=== PATIENT | female | born 1935 | race Caucasian/White ===

== ENCOUNTER 2018-07-07 09:38 | Emergency (ER) | payer OTHER ==
--- NOTE | 2018-07-07 10:57 | RAD REPORT ---
EXAM DESCRIPTION: RAD - Knee Right 3 View - 07/07/2018 10:25 am CLINICAL HISTORY: Right knee pain following slip and fall, history of right knee prosthesis COMPARISON: None. FINDINGS: No comparison imaging available. The gap between the anterior margin distal femur and the anterior aspect of the femoral component can be seen normally. No radiographic evidence for loosening of the femoral component. No gross fracture deformity seen. Faint lucent lines in the distal femur o n the lateral view are not seen on frontal and oblique projections.No joint effusion seen. Bone resor ption changes are present underneath the medial margin of the tibial component. A gross fracture defo rmity is not seen on AP or oblique projections. Lateral view of the knee is significantly oblique to for the tibial component. No foreign body or other soft tissue abnormality. IMPRESSION: No definitive fracture changes are present. Posterior and medial margins of the tibial p lateau are limited in assessment. If patient has clinical concerns for fracture, CT imaging can be performed using [employer] software for f ihsan assessment.
--- NOTE | 2018-07-07 12:01 | RAD REPORT ---
EXAM DESCRIPTION: CT - Knee Right Wo Cont - 07/07/2018 11:39 am CLINICAL HISTORY: Knee pain, fall, right knee prosthesis COMPARISON: Right knee films same date TECHNIQUE: Axial 2 millimeter thick images of the right knee were obtained with sagittal and coronal reformatted images generated and reviewed. O-MAR metal artifact reduction technique was utilized. The CT scan was performed using dose optimization techniques as appropriate to a performed exam incl uding one or more of the following: Automated exposure control, adjustment of the mA and/or kV accord ing to patient size (this includes techniques or standardized protocols for targeted exams where dose is matched to indication/reason for exam) and use of iterative reconstruction technique. FINDINGS: Exam does have limitation even using the O-MAR metal artifact reduction protocol. No acute fracture is confirmed on this study. Periarticular bone along the posterior margin of the ti bial plateau is not seen as an acute fracture component. There is resumption of bone along the medial margin of the tibial component also seen as chronic. This is a potential source for chronic knee abelino n. Implant loosening is not suspected. Joint effusion is present. No fat fluid level seen that would elevate concern for fracture. No air or foreign body in the soft tissues. No skeletal muscle acute finding. IMPRESSION: No acute fracture identifiable. Joint effusion is present with baseline for the patient unknown. No fat fluid level seen as a seconda ry sign for fracture. .
--- NOTE | 2018-07-07 12:13 | EDPHYS ---
Physician Documentation [facility] Name: Josee Romero Age: 83 yrs Sex: Female : 1935 Arrival Date: 07/07/2018 Time: 09:41 Bed 15 Private MD: CHALINO Physician Steven Bautista HPI: 07/07 09:53 This 83 yrs old Female presents to ER via Ambulatory with complaints of Knee armando Pain. 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 - Social history:: Smoking status: Patient/guardian denies using tobacco. - Ebola Screening: : Patient denies exposure to infectious person Patient denies travel to an Ebola-affected area in the 21 days before illness onset. - Family history:: not pertinent. ROS: 09:53 Constitutional: Negative for fever, chills, and weight loss, Eyes: Negative for injury, armando pain, redness, and discharge, ENT: Negative for injury, pain, and discharge, Neck: Negative for injury, pain, and swelling, Cardiovascular: Negative for chest pain, palpitations, and edema, Respiratory: Negative for shortness of breath, cough, wheezing, and pleuritic chest pain, Abdomen/GI: Negative for abdominal pain, nausea, vomiting, diarrhea, and constipation, Back: Negative for injury and pain, : Negative for injury, bleeding, discharge, and swelling, Skin: Negative for injury, rash, and discoloration, Neuro: Negative for headache, weakness, numbness, tingling, and seizure, Psych: Negative for depression, anxiety, suicide ideation, homicidal ideation, and hallucinations, Allergy/Immunology: Negative for hives, rash, and allergies, Endocrine: Negative for neck swelling, polydipsia, polyuria, polyphagia, and marked weight changes, Hematologic/Lymphatic: Negative for swollen nodes, abnormal bleeding, and unusual bruising. 09:53 MS/extremity: Positive for decreased range of motion, pain, swelling, tenderness, of the right knee. Exam: 09:53 Constitutional: This is a well developed, well nourished patient who is awake, alert, armando and in no acute distress. Head/Face: Normocephalic, atraumatic. Eyes: Pupils equal round and reactive to light, extra-ocular motions intact. Lids and lashes normal. Conjunctiva and sclera are non-icteric and not injected. Cornea within normal limits. Periorbital areas with no swelling, redness, or edema. ENT: Nares patent. No nasal discharge, no septal abnormalities noted. Tympanic membranes are normal and external auditory canals are clear. Oropharynx with no redness, swelling, or masses, exudates, or evidence of obstruction, uvula midline. Mucous membranes moist. Neck: Trachea midline, no thyromegaly or masses palpated, and no cervical lymphadenopathy. Supple, full range of motion without nuchal rigidity, or vertebral point tenderness. No Meningismus. Chest/axilla: Normal chest wall appearance and motion. Nontender with no deformity. No lesions are appreciated. Cardiovascular: Regular rate and rhythm with a normal S1 and S2. No gallops, murmurs, or rubs. Normal PMI, no JVD. No pulse deficits. Respiratory: Lungs have equal breath sounds bilaterally, clear to auscultation and percussion. No rales, rhonchi or wheezes noted. No increased work of breathing, no retractions or nasal flaring. Abdomen/GI: Soft, non-tender, with normal bowel sounds. No distension or tympany. No guarding or rebound. No evidence of tenderness throughout. Back: No spinal tenderness. No costovertebral tenderness. Full range of motion. Female : Normal external genitalia. Skin: Warm, dry with normal turgor. Normal color with no rashes, no lesions, and no evidence of cellulitis. Neuro: Awake and alert, GCS 15, oriented to person, place, time, and situation. Cranial nerves II-XII grossly intact. Motor strength 5/5 in all extremities. Sensory grossly intact. Cerebellar exam normal. Normal gait. Psych: Awake, alert, with orientation to person, place and time. Behavior, mood, and affect are within normal limits. 09:53 Musculoskeletal/extremity: ROM: limited active range of motion due to pain, limited passive range of motion due to pain, Circulation is intact in all extremities. Sensation intact. Compartment Syndrome exam of affected extremity: is normal. Weight bearing: able to fully bear weight, DVT Exam: negative Homans' sign noted on exam, no appreciated bluish discoloration, no erythema, no increased warmth, pain, swelling, tenderness. Vital Signs: 09:47 BP 127 / 67; Pulse 66; Resp 18; Pulse Ox 95% on R/A; Pain 5/10; mh5 09:48 BP 127 / 67; Pulse 65; Resp 16; Temp 97.6(TE); Pulse Ox 96% on R/A; Weight 71.21 kg; ss Height 5 ft. 0 in. (152.40 cm); Pain 5/10; 11:02 BP 120 / 69; Pulse 64; Resp 16 S; Pulse Ox 96% on R/A; jl7 09:48 Body Mass Index 30.66 (71.21 kg, 152.40 cm) ss MDM: 09:45 Patient medically screened. [facility] 09:53 Data reviewed: vital signs, nurses notes, radiologic studies. [facility] 07/07 09:52 Order name: Knee Right 3 View XRAY; Complete Time: 11:01 [facility] 07/07 10:58 Order name: Knee Right Wo Cont; Complete Time: 12:10 [facility] 07/07 09:52 Order name: Knee Immobilizer; Complete Time: 11:24 [facility] Administered Medications: No medications were administered Disposition: 07/07/18 12:12 Discharged to Home. Impression: Pain in right knee, Fall due to bumping against object, Effusion, right knee. - Condition is Stable. - Discharge Instructions: Joint Pain, Knee Effusion, Knee Pain, Knee Effusion, Aqpv-[id number], Knee Pain, Jedc-ij-Rold. - Prescriptions for Tylenol- Codeine #3 300-30 mg Oral Tablet - take 2 tablets by ORAL route every 6 hours As needed; 20 tablet. - Medication Reconciliation Form, Thank You Letter, Antibiotic Education, Prescription Opioid Use form. - Follow up: Nestor Husain; When: 2 - 3 days; Reason: Recheck today's complaints, Re-evaluation by your physician. - Problem is new. - Symptoms have improved. Signatures: Dispatcher [employer] EDMS Steven Bautista MD MD cha Smirch, Shelby RN RN ss Corrections: (The following items were deleted from the chart) 12:19 12:12 07/07/2018 12:12 Discharged to Home. Impression: Pain in right knee; Fall due to ss bumping against object; Effusion, right knee. Condition is Stable. Discharge Instructions: Joint Pain, Knee Pain, Knee Pain, [id number]. Prescriptions for Tylenol-Codeine #3 300-30 mg Oral Tablet - take 2 tablets by ORAL route every 6 hours As needed; 20 tablet. and Forms are Medication Reconciliation Form, Thank You Letter, Antibiotic Education, Prescription Opioid Use. Follow up: Nestor Husain; When: 2 - 3 days; Reason: Recheck today's complaints, Re-evaluation by your physician. Problem is new. Symptoms have improved. armando
--- NOTE | 2018-07-07 12:13 | ER ---
Nurse's Notes [facility] Name: Josee Romero Age: 83 yrs Sex: Female : 1935 Arrival Date: 07/07/2018 Time: 09:41 Bed 15 Private MD: Diagnosis: Pain in right knee;Fall due to bumping against object;Effusion, right knee Presentation: 07/07 09:47 Presenting complaint: Mother states: R knee pain x "a few days" after falling from a ss standing position. Family member reports that patient fell a few days ago and again yesterday. Transition of care: patient was not received from another setting of care. Onset of symptoms was July 03, 2018. Risk Assessment: Do you want to hurt yourself or someone else? Patient reports no desire to harm self or others. Initial Sepsis Screen: Does the patient meet any 2 criteria? No. Patient's initial sepsis screen is negative. Does the patient have a suspected source of infection? No. Patient's initial sepsis screen is negative. Care prior to arrival: None. 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 - Social history:: Smoking status: Patient/guardian denies using tobacco. - Ebola Screening: : Patient denies exposure to infectious person Patient denies travel to an Ebola-affected area in the 21 days before illness onset. - Family history:: not pertinent. Screenin:50 Abuse screen: Denies threats or abuse. Denies injuries from another. Nutritional jl7 screening: No deficits noted. Tuberculosis screening: No symptoms or risk factors identified. Fall Risk None identified. Assessment: 09:50 General: Appears in no apparent distress. uncomfortable, Behavior is calm, cooperative, jl7 appropriate for age. Pain: Complains of pain in right knee Pain currently is 5 out of 10 on a pain scale. at worst was 9 out of 10 on a pain scale. Is intermittent. Neuro: Level of Consciousness is awake, alert, obeys commands, Oriented to person, place, time, situation. Cardiovascular: Patient's skin is warm and dry. Respiratory: Airway is patent Respiratory effort is even, unlabored, Respiratory pattern is regular, symmetrical. Derm: Skin is pink, warm \\T\\ dry. Musculoskeletal: Range of motion: limited in right knee. 11:02 Reassessment: Patient appears in no apparent distress at this time. No changes from [facility] previously documented assessment. Patient and/or family updated on plan of care and expected duration. Pain level reassessed. Patient is alert, oriented x 3, equal unlabored respirations, skin warm/dry/pink. Vital Signs: 09:47 BP 127 / 67; Pulse 66; Resp 18; Pulse Ox 95% on R/A; Pain 5/10; mh5 09:48 BP 127 / 67; Pulse 65; Resp 16; Temp 97.6(TE); Pulse Ox 96% on R/A; Weight 71.21 kg; ss Height 5 ft. 0 in. (152.40 cm); Pain 5/10; 11:02 BP 120 / 69; Pulse 64; Resp 16 S; Pulse Ox 96% on R/A; jl7 09:48 Body Mass Index 30.66 (71.21 kg, 152.40 cm) ED Course: 09:41 Patient arrived in ED. tw3 09:45 Steven Bautista MD is Attending Physician. armando 09:48 Triage completed. ss 09:48 Arm band placed on right wrist. Patient placed in an exam room, on a stretcher, on pulse oximetry. 09:49 Areli Sneed, NEY is Primary Nurse. jl7 09:50 Patient has correct armband on for positive identification. Bed in low position. Call [facility] light in reach. Side rails up X 1. Pulse ox on. NIBP on. 10:25 Knee Right 3 View XRAY In Process Unspecified. EDMS 11:[address] mw3 11:39 Knee Right Wo Cont In Process Unspecified. EDMS 12:12 Nestor Husain MD is Referral Physician. armando 12:18 No provider procedures requiring assistance completed. Patient did not have IV access ss during this emergency room visit. Administered Medications: No medications were administered Outcome: 12:12 Discharge ordered by . armando 12:18 Discharged to home via wheelchair. 12:18 Condition: good 12:18 Discharge instructions given to patient, family, Instructed on discharge instructions, follow up and referral plans. medication usage, Demonstrated understanding of instructions, follow-up care, medications, Prescriptions given X 1. 12:19 Patient left the ED. Signatures: Dispatcher [employer] EDMS Steven Bautista MD MD cha Smirch, Shelby, RN RN [place] 5 Areli Sneed RN RN jl7 Jagruti Sosa tw3 Cici Bello mw3
[2018-07-07 12:26] VITALS: TEMP 97.6; O2SAT 96
[2018-07-07 12:27] VITALS: BP 120/69
== END 2018-07-07 12:19 | disposition home or self-care (01) ==
LOC: ER 09:38
DX: M25.461 Effusion, right knee (principal); W18.00XA Striking against unspecified object with subsequent fall, initial encounter; Y93.9 Activity, unspecified; Y92.9 Unspecified place or not applicable; Z88.2 Allergy status to sulfonamides; Z88.8 Allergy status to other drugs, medicaments and biological substances; I10 Essential (primary) hypertension
CPT/HCPCS: 73700; 99284

== ENCOUNTER 2018-10-02 01:05 | Emergency (ER) | payer OTHER ==
[2018-10-02 04:41] LABS: Albumin 4.5 g/dL (3.4-5.0); Bilirubin Direct 0.1 mg/dL (0-0.2); Bilirubin Total 0.4 mg/dL (0.2-1.0); Potassium 4.6 mmol/L (3.5-5.1); Protein, Total 7.9 g/dL (6.4-8.2)
[2018-10-02 04:43] LABS: Basophils % 0.3 % (0-1.3); Eosinophils % 1.1 % (0-4.4); Hematocrit 41.1 % (36.0-45.0); Lymphocytes % 7.2 % (15.3-44.8); MPV 7.2 fL (7.6-11.3); Monocytes % 7.2 % (3.3-12.3); RBC Red Blood Cell Count 4.66 M/uL (3.86-4.86)
--- NOTE | 2018-10-02 05:14 | EDPHYS ---
Physician Documentation [facility] Name: Josee Romero Age: 83 yrs Sex: Female : 1935 Arrival Date: 10/02/2018 Time: 01:09 Bed 6 Private MD: ED Physician Chandana Allison HPI: 10/02 02:17 This 83 yrs old Female presents to ER via EMS with complaints of rn Nausea/Vomiting. 02:17 The patient presents to the emergency department with nausea, vomiting, diarrhea, rn abdominal pain. Onset: The symptoms/episode began/occurred 1 week(s) ago. Possible causes: unknown. The symptoms are aggravated by nothing. The symptoms are alleviated by nothing. Severity of symptoms: At their worst the symptoms were moderate in the emergency department the symptoms are unchanged. The patient has experienced similar episodes in the past. The patient has not recently seen a physician. 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 - Social history:: Smoking status: Patient/guardian denies using tobacco. - Ebola Screening: : No symptoms or risks identified at this time. - Family history:: not pertinent. - Hospitalizations: : No recent hospitalization is reported. ROS: 02:17 Constitutional: Negative for fever, chills, and weight loss, Eyes: Negative for injury, rn pain, redness, and discharge, Cardiovascular: Negative for chest pain, palpitations, and edema, Respiratory: Negative for shortness of breath, cough, wheezing, and pleuritic chest pain, Abdomen/GI: + abd pain and nausea/vomiting/diarrhea Back: Negative for injury and pain, : Negative for injury, bleeding, discharge, and swelling, MS/Extremity: Negative for injury and deformity, Skin: Negative for injury, rash, and discoloration, Neuro: + generalized weakness Exam: 02:17 Constitutional: This is a well developed, well nourished patient who is awake, alert, rn and in no acute distress. Head/Face: Normocephalic, atraumatic. Eyes: Pupils equal round and reactive to light, extra-ocular motions intact. Lids and lashes normal. Conjunctiva and sclera are non-icteric and not injected. Cornea within normal limits. Periorbital areas with no swelling, redness, or edema. ENT: dry MM Cardiovascular: Regular rate and rhythm. No pulse deficits. Respiratory: Lungs have equal breath sounds bilaterally, clear to auscultation Abdomen/GI: soft, mild left sided abd tenderness, no distension, + reducible periumbilical hernia with large defect. Skin: Warm, dry MS/ Extremity: Pulses equal, no cyanosis. Neurovascular intact. Full, normal range of motion. Equal circumference. Neuro: Awake and alert, GCS 15, oriented to person, place, time, and situation Vital Signs: 01:11 BP 156 / 79; Pulse 98; Resp 16; Temp 97.5(O); Pulse Ox 95% on R/A; Weight 71.21 kg (R); ak1 Height 4 ft. 11 in. (149.86 cm); Pain 3/10; 02:54 BP 160 / 75; Pulse 95; Resp 20 S; Pulse Ox 95% on R/A; bb 03:57 BP 135 / 66; Pulse 92; Resp 18; Pulse Ox 95% on R/A; tl2 04:28 BP 151 / 80; Pulse 93; Resp 18 S; Pulse Ox 96% on R/A; bb 05:35 BP 131 / 67; Pulse 87; Resp 16 S; Temp 98.7(TE); Pulse Ox 94% on R/A; bb 01:11 Body Mass Index 31.71 (71.21 kg, 149.86 cm) ak1 MDM: 01:23 Patient medically screened. rn 05:12 Differential diagnosis: Nonspecific abd pain, gastritis, viral gastroenteritis, rn gastroenteritis. Data reviewed: vital signs, nurses notes, lab test result(s), radiologic studies, CT scan, and as a result, I will discharge patient. Counseling: I had a detailed discussion with the patient and/or guardian regarding: the historical points, exam findings, and any diagnostic results supporting the discharge/admit diagnosis, lab results, radiology results, the need for outpatient follow up, to return to the emergency department if symptoms worsen or persist or if there are any questions or concerns that arise at home. Response to treatment: the patient's symptoms have markedly improved after treatment, and as a result, I will discharge patient. Special discussion: I discussed with the patient/guardian in detail that at this point there is no indication for admission to the hospital. It is understood, however, that if the symptoms persist or worsen the patient needs to return immediately for re-evaluation. ED course: Pt feels much better, + dehydration, no acute pathology on ct abdomen, most likely viral syndrome with dehydration, patient states feels good and wants to go home, daughter at home to help care for her, will dc home with prn zofran and instructions for rehydration. Return precautions given and understood.. 10/02 04:24 Order name: Basic Metabolic Panel; Complete Time: 04: EDKY 10/02 01:28 Order name: CT Abd/Pelvis - PO and IV Contrast rn 10/02 04:24 Order name: Liver (Hepatic) Function; Complete Time: 04:51 EDKY 10/02 04:24 Order name: Lipase; Complete Time: 04: EDKY 10/02 04:24 Order name: Lactate; Complete Time: 04:51 EDKY 10/02 04:24 Order name: CBC with Automated Diff; Complete Time: 04: EDKY 10/02 01:28 Order name: IV Saline Lock; Complete Time: : rn 10/02 01:28 Order name: Labs collected and sent; Complete Time: : rn Administered Medications: 01:31 Drug: Zofran 4 mg Route: IVP; Site: right antecubital; bb 02:30 Follow up: Response: No adverse reaction bb 01:32 Drug: NS 0.9% 1000 ml Route: IV; Rate: 1000 ml; Site: right antecubital; bb 02:30 Follow up: IV Status: Completed infusion; IV Intake: 1000ml bb 03:06 Drug: NS 0.9% 500 ml Route: IV; Rate: bolus; Site: right antecubital; latonya 04:00 Follow up: IV Status: Completed infusion; IV Intake: 500ml latonya 05:33 Drug: LoMOTIL 2 tabs Route: PO; latonya 05:33 Follow up: Response: Medication administered at discharge. latonya Disposition: 10/02/18 05:14 Discharged to Home. Impression: Vomiting, Diarrhea, unspecified, Dehydration. - Condition is Stable. - Discharge Instructions: Diarrhea, Adult, Nausea and Vomiting, Adult. - Prescriptions for Zofran ODT 4 mg Oral tablet,disintegrating - place 1 tablet by TRANSLINGUAL route every 8 hours As needed; 20 tablet. - Medication Reconciliation Form, Thank You Letter, Antibiotic Education, Prescription Opioid Use form. - Follow up: Private Physician; When: 2 - 3 days; Reason: Recheck today's complaints, Re-evaluation by your physician. - Problem is an ongoing problem. - Symptoms have improved. Signatures: Dispatcher [employer] EDKY Abimbola Phipps ds1 Marleen Villafana RN RN bb Nieto, Roman, MD MD rn Krenek, Amber, RN RN ak1 Verna Sanchez, NEY RN tl2 Corrections: (The following items were deleted from the chart) 04:30 04:25 BASIC METABOLIC PANEL+C.LAB.BRZ ordered. EDMS EDMS 04:30 04:25 CBC+H.LAB.BRZ ordered. EDMS EDMS 04:30 04:25 HEPATIC FUNCTION+C.LAB.BRZ ordered. EDMS EDMS 04:30 04:25 LIPASE+C.LAB.BRZ ordered. EDKY EDMS 04:30 04:25 LACTATE+C.LAB.BRZ ordered. EDKY EDMS 06:36 05:14 10/02/2018 05:14 Discharged to Home. Impression: Vomiting; Diarrhea, unspecified; tl2 Dehydration. Condition is Stable. Forms are Medication Reconciliation Form, Thank You Letter, Antibiotic Education, Prescription Opioid Use. Follow up: Private Physician; When: 2 - 3 days; Reason: Recheck today's complaints, Re-evaluation by your physician. Problem is an ongoing problem. Symptoms have improved. rn
--- NOTE | 2018-10-02 05:14 | ER ---
Nurse's Notes [facility] Name: Josee Romero Age: 83 yrs Sex: Female : 1935 Arrival Date: 10/02/2018 Time: 01:09 Bed 6 Private MD: Diagnosis: Vomiting;Diarrhea, unspecified;Dehydration Presentation: 10/02 01:12 Presenting complaint: EMS states: pt c/o N/V X12 hours and diarrhea X1 week with ak1 bloating and gas. Transition of care: patient was not received from another setting of care. Onset of symptoms was October 02, 2018. Risk Assessment: Do you want to hurt yourself or someone else? Patient reports no desire to harm self or others. Initial Sepsis Screen: Does the patient meet any 2 criteria? No. Patient's initial sepsis screen is negative. Does the patient have a suspected source of infection? No. Patient's initial sepsis screen is negative. Note EMS FSBG 233. Care prior to arrival: IV initiated. 20 GA, in the right antecubital area. 01:12 Acuity: ELPIDIO 3 ak1 01:12 Method Of Arrival: EMS: [facility] ak1 Triage Assessment: 01:15 General: Appears in no apparent distress. Behavior is calm, cooperative. Pain: ak1 Complains of pain in epigastric area. EENT: No signs and/or symptoms were reported regarding the EENT system. Neuro: Level of Consciousness is awake, alert, obeys commands, Oriented to person, place, time, situation, Nutrition Services Manager are equal bilaterally Moves all extremities. Gait is unsteady, shuffling, Speech is normal, Facial symmetry appears normal. Cardiovascular: No deficits noted. Respiratory: No deficits noted. GI: Reports upper abdominal pain, diarrhea, nausea, vomiting. : No signs and/or symptoms were reported regarding the genitourinary system. Derm: No signs and/or symptoms reported regarding the dermatologic system. Musculoskeletal: No signs and/or symptoms reported regarding the musculoskeletal system. 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 - Social history:: Smoking status: Patient/guardian denies using tobacco. - Ebola Screening: : No symptoms or risks identified at this time. - Family history:: not pertinent. - Hospitalizations: : No recent hospitalization is reported. Screenin:21 Abuse screen: Denies threats or abuse. Denies injuries from another. Nutritional ak1 screening: No deficits noted. Tuberculosis screening: No symptoms or risk factors identified. Fall Risk None identified. Assessment: 01:32 General: Appears in no apparent distress. uncomfortable, Behavior is calm, cooperative. bb Pain: Complains of pain in abdomen. Neuro: Level of Consciousness is awake, alert, obeys commands, Oriented to person, place, time, situation. Cardiovascular: Heart tones S1 S2 present. Cardiovascular: Capillary refill < 3 seconds Patient's skin is warm and dry. Respiratory: Airway is patent Respiratory effort is even, unlabored, Respiratory pattern is regular. GI: Abdomen is round Bowel sounds present X 4 quads. Abd is soft X 4 quads Abdomen is tender to palpation in right upper quadrant and left upper quadrant Reports diarrhea, flatulence, vomiting. Derm: Skin is pink, warm \T\ dry. Musculoskeletal: Circulation, motion, and sensation intact. 02:54 Reassessment: Patient and/or family updated on plan of care and expected duration. Pain bb level reassessed. Patient is alert, oriented x 3, equal unlabored respirations, skin warm/dry/pink. pt is awaiting CT results. 03:20 Reassessment: pt to CT scan via wheelchair with medical coding technician. bb 04:27 Reassessment: Patient is alert, oriented x 3, equal unlabored respirations, skin bb warm/dry/pink. pt assisted to bathroom via wheelchair, IV site intact with no erythema or edema noted, awaiting CT results. 05:34 Reassessment: Patient and/or family updated on plan of care and expected duration. Pain bb level reassessed. Patient is alert, oriented x 3, equal unlabored respirations, skin warm/dry/pink. pt verbalized understanding of and agrees to plan of care discharge instructions given pt awaiting family for transportation home Patient states feeling better. Vital Signs: 01:11 BP 156 / 79; Pulse 98; Resp 16; Temp 97.5(O); Pulse Ox 95% on R/A; Weight 71.21 kg (R); ak1 Height 4 ft. 11 in. (149.86 cm); Pain 3/10; 02:54 BP 160 / 75; Pulse 95; Resp 20 S; Pulse Ox 95% on R/A; bb 03:57 BP 135 / 66; Pulse 92; Resp 18; Pulse Ox 95% on R/A; tl2 04:28 BP 151 / 80; Pulse 93; Resp 18 S; Pulse Ox 96% on R/A; bb 05:35 BP 131 / 67; Pulse 87; Resp 16 S; Temp 98.7(TE); Pulse Ox 94% on R/A; bb 01:11 Body Mass Index 31.71 (71.21 kg, 149.86 cm) ak1 ED Course: 01:09 Patient arrived in ED. ds1 01:13 Triage completed. ak1 01:15 Arm band placed on Patient placed in an exam room, on a stretcher, Patient notified of ak1 wait time. 01:21 Patient has correct armband on for positive identification. Placed in gown. Bed in low ak1 position. Call light in reach. Side rails up X 1. Side rails up X2. Adult w/ patient. Pulse ox on. NIBP on. 01:21 Maintain EMS IV. Dressing intact. Site clean \T\ dry. Gauge \T\ site: 20g Right AC. ak 1 01:23 Chandana Allison MD is Attending Physician. rn 01:30 Marleen Villafana RN is Primary Nurse. bb 01:32 Warm blanket given. bb 01:32 Initial lab(s) drawn, by ED staff, sent to lab. bb 05:34 No provider procedures requiring assistance completed. IV discontinued, intact, bb bleeding controlled, No redness/swelling at site. Pressure dressing applied. 06:55 CT Abd/Pelvis - PO and IV Contrast In Process Unspecified. EDMS Administered Medications: 01:31 Drug: Zofran 4 mg Route: IVP; Site: right antecubital; bb 02:30 Follow up: Response: No adverse reaction bb 01:32 Drug: NS 0.9% 1000 ml Route: IV; Rate: 1000 ml; Site: right antecubital; bb 02:30 Follow up: IV Status: Completed infusion; IV Intake: 1000ml bb 03:06 Drug: NS 0.9% 500 ml Route: IV; Rate: bolus; Site: right antecubital; bb 04:00 Follow up: IV Status: Completed infusion; IV Intake: 500ml bb 05:33 Drug: LoMOTIL 2 tabs Route: PO; bb 05:33 Follow up: Response: Medication administered at discharge. bb Intake: 02:30 IV: 1000ml; Total: 1000ml. bb 04:00 IV: 500ml; Total: 1500ml. bb Outcome: 05:14 Discharge ordered by . rn 05:35 Discharged to home awaiting family for transportation home bb 05:35 Condition: stable 05:35 Discharge instructions given to patient, Instructed on discharge instructions, follow up and referral plans. medication usage, Demonstrated understanding of instructions, follow-up care, medications, Prescriptions given X 2. 06:36 Patient left the ED. tl2 Signatures: Dispatcher [employer] EDCO Abimbola Phipps Brenda, RN RN bb Nieto, Roman, MD MD rn Krenek, Amber, RN RN ak1 Verna Sanchez RN RN tl2
[2018-10-02] MEDS ORDERED: DIPHENOX/ATROP SULF 1 TAB PO ONE (05:39)
[2018-10-02 06:59] VITALS: BP 131/67; TEMP 98.7; O2SAT 94
--- NOTE | 2018-10-02 10:39 | RAD REPORT ---
EXAM DESCRIPTION: CT abdomen and pelvis with IV contrast CLINICAL HISTORY: 83-year-old female with abdominal pain, nausea and vomiting TECHNIQUE: Axial CT imaging of the abdomen and pelvis was performed following the administration of intravenous contrast.. Sagittal and coronal reconstructed images were then performed. The CT stud y is performed according to ALARA (as low as reasonably achievable) or ALARA/IMAGE GENTLY, with autom atic adjustment of mA and/or kV according to patient size. Performed on: 10/02/2018 at 3:27 AM. Comparison: None FINDINGS: Lung bases: The lung bases are clear. There is minimal bibasilar atelectasis and/or fibros is. Liver: The liver is normal in size and configuration. No focal hepatic abnormalities are identified. Liver attenuation is within normal limits. Spleen: The spleen is normal is size, configuration and attenuation. Gallbladder and bile duct: The gallbladder is surgically absent. There is no biliary ductal dilatat ion. Pancreas: The pancreas is grossly normal in size and configuration. Adrenal Glands: The adrenal glands are normal in size and configuration. Kidneys: The kidneys are normal in size and configuration. There is no evidence of hydronephrosis. Th ere is no evidence of nephrolithiasis. There are a few scattered renal cortical cysts more prominent on the right. 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 The ureters merge at emma roximately the level of the lumbosacral junction. Stomach: The stomach is grossly normal. There is no definite hiatal hernia. Bowel: The bowel gas pattern is non specific and non obstructive. Appendix: The appendix is not well visualized on this examination and may be surgically absent. Free air: There is no evidence of free air. Free fluid: There is no evidence of free fluid. Vasculature: The aorta is normal in caliber and contour. There are mild to moderate atherosclerotic c alcifications along the abdominal aorta and major branch vessels. An inferior vena cava filter is pre sent. The inferior vena cava is otherwise unremarkable. Lymphadenopathy: No pathologic lymphadenopathy is identified. Bladder: The bladder is well distended and smooth in contour. Reproductive: The uterus is surgically absent. There are multiple surgical clips within the pelvis bi laterally. Bones: No acute osseous abnormalities are identified. There is mild loss of height of the L1 vertebra l body likely related to a mild superior endplate compression fracture. There are chronic degenerativ e changes of the thoracolumbar spine with vacuum discs present at multiple levels. There is multileve l disc space narrowing and degenerative spurring. Soft tissues: There is attenuation of the anterior abdominal wall muscles with bowel loops extending through the weakened abdominal wall. No andrew herniation is identified. There is a supraumbilical fat -containing ventral abdominal wall hernia. IMPRESSION: 1. No definite acute intra-abdominal or intrapelvic pathology. 2. Remote cholecystectomy, hysterectomy and probable appendectomy. 3. Degenerative changes of the skeletal and vascular structures. 4. Inferior vena cava filter present. 5. Attenuation of the anterior abdominal wall muscles with bowel loops extending through the weakened abdominal wall without andrew herniation. There is a fat-containing supraumbilical ventral abdominal wall hernia. Electronically signed by: Ami Johnson DO 10/02/2018 4:25 AM CDT Due to temporary technical issues with the PACS/Fluency reporting system, reports are being signed by the in house radiologist as a courtesy to ensure prompt reporting. The interpreting radiologist is f ully responsible for the content of the report.
== END 2018-10-02 06:36 | disposition home or self-care (01) ==
LOC: ER 01:05
DX: E86.0 Dehydration (principal); R19.7 Diarrhea, unspecified; I10 Essential (primary) hypertension; E11.9 Type 2 diabetes mellitus without complications; E07.9 Disorder of thyroid, unspecified; Z88.2 Allergy status to sulfonamides; Z88.8 Allergy status to other drugs, medicaments and biological substances
CPT/HCPCS: 96361; 85025; 80048; 36415; 80076; 83605; 83690; 74177; 96374; 99284; Q9967

== ENCOUNTER 2019-03-21 04:02 | Inpatient (IN) | payer OTHER ==
[2019-03-21] MEDS ORDERED: METHYLPREDNISOLONE 125 MG INJ ONE ×2 (05:10→07:38)
[2019-03-21] MEDS ORDERED: OSELTAMIVIR 75 MG CAP ONE (05:10)
[2019-03-21] MEDS ORDERED: MORPHINE 2 MG/ML SYR ONE ×2 (05:11→07:38)
[2019-03-21] MEDS ORDERED: IPRATROPIUM BROM 0.5MG/2.5ML ONE ×3 (05:11→19:56)
[2019-03-21] MEDS ORDERED: LEVALBUTEROL 1.25 MG/3 ML NEB ONE ×3 (05:11→07:38)
[2019-03-21] MEDS ORDERED: ACETAMINOPHEN 325 MG TABLET ONE ×2 (05:11→08:42)
[2019-03-21] MEDS ORDERED: AZITHROMYCIN 500 MG INJ IVPB ONE (05:12)
[2019-03-21] MEDS ORDERED: CEFTRIAXONE/SWI 1gm 1 GM/10 ML SYR ONE (05:12)
[2019-03-21] MEDS ORDERED: NA CHLORIDE 0.9% 250 ML ONE ×2 (05:12→06:11)
[2019-03-21] MEDS ORDERED: NA CHLORIDE 0.9% 2,000 ML ONE (05:12)
[2019-03-21] MEDS ORDERED: ONDANSETRON 4 MG/2 ML VIAL ONE (05:12)
[2019-03-21] MEDS ORDERED: dexAMETHasone 10 MG/ML VIAL ONE (05:20)
--- NOTE | 2019-03-21 05:54 | ER ---
Nurse's Notes [facility] Name: Josee Romero Age: 84 yrs Sex: Female : 1935 Arrival Date: 03/21/2019 Time: 04:05 Bed 26 Private MD: Diagnosis: Fever, unspecified;Acute pharyngitis;Dyspnea;Weakness;Hypomagnesemia Presentation: 03/21 04:19 Presenting complaint: Patient states: having this throat pain started 03-19-19 it feels rr5 sore all the way down to my chest, having cough, lung congestion and wheezes. I could not sleep it feels like its getting worse and worse. Transition of care: patient was not received from another setting of care. Onset of symptoms was March 19, 2019. Risk Assessment: Do you want to hurt yourself or someone else? Patient reports no desire to harm self or others. Initial Sepsis Screen: Does the patient meet any 2 criteria? RR > 20 per min. No. Patient's initial sepsis screen is negative. Does the patient have a suspected source of infection? Yes: Productive cough/pneumonia. Care prior to arrival: None. 04:19 Method Of Arrival: Ambulatory rr5 04:19 Acuity: ELPIDIO 3 rr5 Historical: - Allergies: 04:20 Monopril; rr5 04:20 Sulfa (Sulfonamide Antibiotics); rr5 - Home Meds: 04:20 amlodipine oral [Active]; Bupropion Oral [Active]; gabapentin Oral [Active]; Lasix Oral rr5 [Active]; levothyroxine oral [Active]; Omeprazole Oral [Active]; rosuvastatin Oral [Active]; Spironolactone Oral [Active]; - PMHx: 04:20 Diabetes - NIDDM; Hypertension; mitral valve prolapse; Thyroid problem; rr5 - PSHx: 04:20 Cholecystectomy; colon surgery; Hysterectomy; Knee surgery; Appendectomy; cervical rr5 spine surgery; - Immunization history:: Adult Immunizations up to date, Pneumococcal vaccine is up to date, Flu vaccine is up to date. - Social history:: Smoking status: Patient/guardian denies using tobacco, Patient/guardian denies using alcohol, street drugs. - Ebola Screening: : Patient negative for fever greater than or equal to 101.5 degrees Fahrenheit, and additional compatible Ebola Virus Disease symptoms Patient denies exposure to infectious person Patient denies travel to an Ebola-affected area in the 21 days before illness onset. - Family history:: not pertinent. Screenin:41 Abuse screen: Denies threats or abuse. Denies injuries from another. Nutritional rr5 screening: No deficits noted. Tuberculosis screening: No symptoms or risk factors identified. Fall Risk Ambulatory Aid- Crutches/Cane/Walker (15 pts). Gait- Weak (10 pts.). Total [place] Fall Scale indicates Low Risk Score (25-44 pts). Fall prevention measures have been instituted. Side Rails Up X 2 Placed close to Nursing Station Frequent Obs/Assesments occuring Family Present and informed to notify staff if they need to leave bedside As available Patient and Family Educated on Fall Prevention Program and strategies. Assessment: 04:20 General: Appears in no apparent distress. uncomfortable, Behavior is calm, cooperative, rr5 appropriate for age. Pain: Complains of pain in throat Pain radiates to chest Pain currently is 9 out of 10 on a pain scale. Quality of pain is described as aching, Pain began gradually, Is intermittent. 04:20 Neuro: Level of Consciousness is awake, alert, obeys commands, Oriented to person, rr5 place, time, situation, Appropriate for age. Cardiovascular: Capillary refill < 3 seconds Patient's skin is warm and dry. Respiratory: Reports cough that is productive, congestion Airway is patent Respiratory effort is even, labored, Respiratory pattern is tachypnea. GI: No signs and/or symptoms were reported involving the gastrointestinal system. : No signs and/or symptoms were reported regarding the genitourinary system. EENT: Throat is clear with gag reflex present, Reports nasal congestion pain when swallowing. Derm: Skin is intact, is healthy with good turgor, Skin temperature is warm. Musculoskeletal: Circulation, motion, and sensation intact. Capillary refill < 3 seconds. 04:20 Respiratory: Breath sounds with wheezes. rr5 05:00 Reassessment: Patient appears in no apparent distress at this time. No changes from rr5 previously documented assessment. 05:55 Reassessment: Patient and/or family updated on plan of care and expected duration. Pain rr5 level reassessed. patient still have the wheezing sound ED provider informed with order made and carried out. patient and family member informed for the admission and agreed. Mio (daughter) [phone](carmel) [phone] (Home) contact number. 06:35 Reassessment: Patient appears in no apparent distress at this time. Patient and/or wh family updated on plan of care and expected duration. Pain level reassessed. Patient is alert, oriented x 3, equal unlabored respirations, skin warm/dry/pink. 07:48 Reassessment: Patient appears in no apparent distress at this time. Patient and/or family updated on plan of care and expected duration. Pain level reassessed. Vital Signs: 04:16 BP 166 / 77; Pulse 89; Resp 26; Temp 100.1; Pulse Ox 96% ; Weight 71.21 kg; Height 5 rr5 ft. 0 in. (152.40 cm); Pain 9/10; 05:00 BP 169 / 85; Pulse 92; Resp 27; Pulse Ox 98% on R/A; Pain 9/10; rr5 06:00 BP 160 / 69; Pulse 95; Resp 29; Temp 100.2; Pulse Ox 100% on 15% Nebulizer Mask; Pain rr5 4/10; 07:00 BP 137 / 65; Pulse 93; Resp 18; Pulse Ox 94% on 2 lpm NC; wh 04:16 Body Mass Index 30.66 (71.21 kg, 152.40 cm) rr5 ED Course: 04:05 Patient arrived in ED. cl3 04:18 Tejinder Vargas, RN is Primary Nurse. rr5 04:20 Arm band placed on. rr5 04:23 Triage completed. rr5 04:35 Flu and/or RSV swab sent to lab. Strep swab sent to lab. rr5 04:41 Steven Bautista MD is Attending Physician. [facility] 04:41 Patient has correct armband on for positive identification. Bed in low position. Call rr5 light in reach. Side rails up X2. Adult w/ patient. Pulse ox on. NIBP on. 05:05 Initial Neb Treatment Given as ordered Patient was instructed and evaluated on rr5 procedure. 05:25 EKG done, by ED staff, reviewed by Steven Bautista MD. rr5 05:35 Inserted saline lock: 20 gauge in right forearm, using aseptic technique. Blood rr5 collected. 05:35 First set of blood cultures drawn by me. rr5 05:50 Lorena Calixto MD is Hospitalizing Provider. armando 05:55 Initial Neb Treatment Given as ordered Patient did not tolerate procedure well rr5 Patient's Physician, still audible wheezing sound. ED provider aware with order made and carried out, notified Subsequent Neb Treatment Given as ordered Patient was reinforced on procedure. 06:00 Second set of blood cultures drawn by me. rr5 07:48 Primary Nurse role handed off by Tejinder Vargas RN 07:48 Belinda Mustafa, NEY is Primary Nurse. 08:00 No provider procedures requiring assistance completed. Patient admitted, IV remains in ch place. Administered Medications: 05:05 Drug: Xopenex 2.5 mg Route: Inhalation; rr5 05:50 Follow up: Response: Wheezing unchanged rr5 05:05 Drug: AtroVENT Aerosol 0.5 mg Route: Inhalation; rr5 05:50 Follow up: Response: Wheezing unchanged rr5 05:08 Not Given (Duplicate Order): SOLU-Medrol 125 mg IVP once armando 05:20 Drug: Tylenol 650 mg Route: PO; rr5 06:19 Follow up: Response: No adverse reaction; Temperature is increased rr5 05:20 Drug: Tamiflu 75 mg Route: PO; rr5 06:18 Follow up: Response: No adverse reaction rr5 05:35 Drug: NS 0.9% 1000 ml Route: IV; Rate: 1 bolus; Site: right forearm; rr5 06:50 Follow up: Response: No adverse reaction; IV Status: Completed infusion 05:38 Drug: Zofran 4 mg Route: IVP; Site: right forearm; rr5 06:16 Follow up: Response: No adverse reaction rr5 05:40 Drug: morphine 2 mg {Note: rass 0.} Route: IVP; Site: right forearm; rr5 06:50 Follow up: Response: No adverse reaction; Pain is decreased; RASS: Alert and Calm (0) 05:45 Drug: Decadron - Dexamethasone 10 mg Route: IVP; Site: right forearm; rr5 06:50 Follow up: Response: No adverse reaction 05:55 Drug: Xopenex 1.25 mg Route: Inhalation; rr5 06:00 Drug: Rocephin 1 grams Route: IV; Rate: per protocol; Site: right forearm; rr5 06:15 Follow up: Response: No adverse reaction; IV Status: Completed infusion rr5 06:15 Dru mg of (Zithromax 500 mg, NS 0.9% 250 ml) Route: IVPB; Infused Over: 1 hrs; rr5 Site: right forearm; 06:49 Follow up: Response: No adverse reaction; IV Status: Completed infusion 06:49 Drug: NS 0.9% 1000 ml Route: IV; Rate: 1 bolus; Site: right antecubital; 08:00 Follow up: IV Status: Completed infusion; IV Intake: 1000ml ch 07:30 Drug: Magnesium Sulfate 2 grams Route: IVPB; Infused Over: 2 hrs; Site: right forearm; ch 08:00 Follow up: IV Status: Infusion continued upon admission ch 07:30 Drug: Aspirin 162 mg Route: PO; ch 08:00 Follow up: Response: No adverse reaction ch 07:30 Drug: Lovenox 40 mg Route: Sub-Q; Site: right lower abdomen; ch 08:00 Follow up: Response: No adverse reaction ch 07:30 Drug: Xopenex 1.25 mg Route: Inhalation; ch 08:00 Follow up: Response: No adverse reaction 07:51 Drug: morphine 2 mg Route: IVP; Site: right forearm; ch 08:10 Follow up: Response: No adverse reaction; Marked relief of symptoms ch Intake: 08:00 IV: 1000ml; Total: 1000ml. ch Outcome: 05:53 Decision to Hospitalize by Provider. [facility] 15:51 Patient left the ED. Signatures: Belinda Mustafa RN RN ch Anderson, Corey, MD MD cha Baxter, Heather, RN RN Mar Kelly Tejinder Vargas RN RN rr5 Kay Nunez cl3
--- NOTE | 2019-03-21 05:55 | EDPHYS ---
Physician Documentation [facility] Name: Josee Romero Age: 84 yrs Sex: Female : 1935 Arrival Date: 03/21/2019 Time: 04:05 Bed 26 Private MD: ED Physician Steven Bautista HPI: 03/21 05:05 This 84 yrs old Female presents to ER via Ambulatory with complaints of Chest armando Congestion, Sore Throat. 05:05 The patient presents with sore throat. The patient describes throat pain as raw, armando scratchy. Onset: The symptoms/episode began/occurred 2 day(s) ago. Severity of symptoms: At their worst the symptoms were mild, in the emergency department the symptoms are unchanged. Modifying factors: The symptoms are alleviated by. Associated signs and symptoms: The patient has no apparent associated signs or symptoms. The patient has not experienced similar symptoms in the past. Historical: - Allergies: 04:20 Monopril; rr5 04:20 Sulfa (Sulfonamide Antibiotics); rr5 - Home Meds: 04:20 amlodipine oral [Active]; Bupropion Oral [Active]; gabapentin Oral [Active]; Lasix Oral rr5 [Active]; levothyroxine oral [Active]; Omeprazole Oral [Active]; rosuvastatin Oral [Active]; Spironolactone Oral [Active]; - PMHx: 04:20 Diabetes - NIDDM; Hypertension; mitral valve prolapse; Thyroid problem; rr5 - PSHx: 04:20 Cholecystectomy; colon surgery; Hysterectomy; Knee surgery; Appendectomy; cervical rr5 spine surgery; - Immunization history:: Adult Immunizations up to date, Pneumococcal vaccine is up to date, Flu vaccine is up to date. - Social history:: Smoking status: Patient/guardian denies using tobacco, Patient/guardian denies using alcohol, street drugs. - Ebola Screening: : Patient negative for fever greater than or equal to 101.5 degrees Fahrenheit, and additional compatible Ebola Virus Disease symptoms Patient denies exposure to infectious person Patient denies travel to an Ebola-affected area in the 21 days before illness onset. - Family history:: not pertinent. ROS: 05:05 Constitutional: Negative for fever, chills, and weight loss, Eyes: Negative for injury, armando pain, redness, and discharge, Neck: Negative for injury, pain, and swelling, Cardiovascular: Negative for chest pain, palpitations, and edema, Abdomen/GI: Negative for abdominal pain, nausea, vomiting, diarrhea, and constipation, Back: Negative for injury and pain, : Negative for injury, bleeding, discharge, and swelling, MS/Extremity: Negative for injury and deformity, Skin: Negative for injury, rash, and discoloration, Neuro: Negative for headache, weakness, numbness, tingling, and seizure, Psych: Negative for depression, anxiety, suicide ideation, homicidal ideation, and hallucinations, Allergy/Immunology: Negative for hives, rash, and allergies, Endocrine: Negative for neck swelling, polydipsia, polyuria, polyphagia, and marked weight changes, Hematologic/Lymphatic: Negative for swollen nodes, abnormal bleeding, and unusual bruising. 05:05 ENT: Positive for difficulty swallowing, sore throat. 05:05 Respiratory: Positive for cough, shortness of breath, at rest. wheezing, expiratory. Exam: 05:05 Constitutional: This is a well developed, well nourished patient who is awake, alert, armando and in no acute distress. Head/Face: Normocephalic, atraumatic. Eyes: Pupils equal round and reactive to light, extra-ocular motions intact. Lids and lashes normal. Conjunctiva and sclera are non-icteric and not injected. Cornea within normal limits. Periorbital areas with no swelling, redness, or edema. Neck: Trachea midline, no thyromegaly or masses palpated, and no cervical lymphadenopathy. Supple, full range of motion without nuchal rigidity, or vertebral point tenderness. No Meningismus. Chest/axilla: Normal chest wall appearance and motion. Nontender with no deformity. No lesions are appreciated. Cardiovascular: Regular rate and rhythm with a normal S1 and S2. No gallops, murmurs, or rubs. Normal PMI, no JVD. No pulse deficits. Abdomen/GI: Soft, non-tender, with normal bowel sounds. No distension or tympany. No guarding or rebound. No evidence of tenderness throughout. Back: No spinal tenderness. No costovertebral tenderness. Full range of motion. Female : Normal external genitalia. Skin: Warm, dry with normal turgor. Normal color with no rashes, no lesions, and no evidence of cellulitis. MS/ Extremity: Pulses equal, no cyanosis. Neurovascular intact. Full, normal range of motion. Neuro: Awake and alert, GCS 15, oriented to person, place, time, and situation. Cranial nerves II-XII grossly intact. Motor strength 5/5 in all extremities. Sensory grossly intact. Cerebellar exam normal. Normal gait. Psych: Awake, alert, with orientation to person, place and time. Behavior, mood, and affect are within normal limits. 05:05 ENT: Posterior pharynx: Tonsils: bilaterally enlarged, with erythema, Uvula: normal, midline, swelling, that is mild, that is moderate, erythema, that is moderate, exudate, is not appreciated, peritonsillar mass, is not appreciated, pooling of secretions, is not appreciated. Vital Signs: 04:16 BP 166 / 77; Pulse 89; Resp 26; Temp 100.1; Pulse Ox 96% ; Weight 71.21 kg; Height 5 rr5 ft. 0 in. (152.40 cm); Pain 9/10; 05:00 BP 169 / 85; Pulse 92; Resp 27; Pulse Ox 98% on R/A; Pain 9/10; rr5 06:00 BP 160 / 69; Pulse 95; Resp 29; Temp 100.2; Pulse Ox 100% on 15% Nebulizer Mask; Pain rr5 4/10; 07:00 BP 137 / 65; Pulse 93; Resp 18; Pulse Ox 94% on 2 lpm NC; wh 04:16 Body Mass Index 30.66 (71.21 kg, 152.40 cm) rr5 MDM: 04:44 Patient medically screened. [facility] 05:08 Data reviewed: vital signs, nurses notes, lab test result(s), EKG, radiologic studies, [facility] plain films. 03/21 04:29 Order name: Flu rr5 03/21 04:29 Order name: Strep rr5 03/21 04:44 Order name: Influenza Screen (A ; Complete Time: 05:35 EDNC 03/21 04:44 Order name: Group A Streptococcus Rapid Sc; Complete Time: 05:35 EDNC 03/21 05:04 Order name: Basic Metabolic Panel [facility] 03/21 05:04 Order name: CBC with Diff [facility] 03/21 05:04 Order name: LFT's [facility] 03/21 05:04 Order name: Magnesium [facility] 03/21 05:04 Order name: NT PRO-BNP [facility] 03/21 05:04 Order name: PT-INR [facility] 03/21 05:04 Order name: Troponin (emerg Dept Use Only) [facility] 03/21 05:04 Order name: Blood Culture Adult (2) [facility] 03/21 05:04 Order name: Lactate [facility] 03/21 05:16 Order name: Throat Culture [facility] 03/21 05:53 Order name: Basic Metabolic Panel; Complete Time: 06:43 [facility] 03/21 05:53 Order name: Liver (Hepatic) Function; Complete Time: 06:43 [facility] 03/21 05:53 Order name: Troponin (Emerg Dept Use Only); Complete Time: 06:43 [facility] 03/21 05:53 Order name: NT PRO-BNP; Complete Time: 06:43 [facility] 03/21 05:53 Order name: Magnesium; Complete Time: 06:43 [facility] 03/21 05:53 Order name: Lactate; Complete Time: 06:20 [facility] 03/21 05:53 Order name: CBC with Automated Diff; Complete Time: 06:20 [facility] 03/21 05:53 Order name: Protime (+INR); Complete Time: 06:20 [facility] 03/21 05:53 Order name: Blood Culture [facility] 03/21 05:53 Order name: Blood Culture [facility] 03/21 07:20 Order name: Influenza Screen (A [facility] 03/21 07:20 Order name: Group A Streptococcus Rapid Sc [facility] 03/21 07:20 Order name: Blood Culture [facility] 03/21 07:54 Order name: Urine Dipstick--Ancillary (enter results) 03/21 07:57 Order name: Urine Dipstick-Ancillary [facility] 03/21 08:26 Order name: Troponin I [facility] 03/21 04:31 Order name: Chest Single View XRAY rr5 03/21 05:04 Order name: EKG; Complete Time: 07:02 [facility] 03/21 05:04 Order name: Cardiac monitoring; Complete Time: 06:09 [facility] 03/21 05:04 Order name: EKG - Nurse/Tech; Complete Time: 06:09 [facility] 03/21 05:04 Order name: IV Saline Lock; Complete Time: 06:10 [facility] 03/21 05:04 Order name: Labs collected and sent; Complete Time: 06:10 [facility] 03/21 05:04 Order name: O2 Per Protocol; Complete Time: 06:10 [facility] 03/21 05:04 Order name: O2 Sat Monitoring; Complete Time: 06:10 [facility] 03/21 08:27 Order name: RAD EDMS Administered Medications: 05:05 Drug: Xopenex 2.5 mg Route: Inhalation; rr5 05:50 Follow up: Response: Wheezing unchanged rr5 05:05 Drug: AtroVENT Aerosol 0.5 mg Route: Inhalation; rr5 05:50 Follow up: Response: Wheezing unchanged rr5 05:08 Not Given (Duplicate Order): SOLU-Medrol 125 mg IVP once [facility] 05:20 Drug: Tylenol 650 mg Route: PO; rr5 06:19 Follow up: Response: No adverse reaction; Temperature is increased rr5 05:20 Drug: Tamiflu 75 mg Route: PO; rr5 06:18 Follow up: Response: No adverse reaction rr5 05:35 Drug: NS 0.9% 1000 ml Route: IV; Rate: 1 bolus; Site: right forearm; rr5 06:50 Follow up: Response: No adverse reaction; IV Status: Completed infusion 05:38 Drug: Zofran 4 mg Route: IVP; Site: right forearm; rr5 06:16 Follow up: Response: No adverse reaction rr5 05:40 Drug: morphine 2 mg {Note: rass 0.} Route: IVP; Site: right forearm; rr5 06:50 Follow up: Response: No adverse reaction; Pain is decreased; RASS: Alert and Calm (0) 05:45 Drug: Decadron - Dexamethasone 10 mg Route: IVP; Site: right forearm; rr5 06:50 Follow up: Response: No adverse reaction 05:55 Drug: Xopenex 1.25 mg Route: Inhalation; rr5 06:00 Drug: Rocephin 1 grams Route: IV; Rate: per protocol; Site: right forearm; rr5 06:15 Follow up: Response: No adverse reaction; IV Status: Completed infusion rr5 06:15 Dru mg of (Zithromax 500 mg, NS 0.9% 250 ml) Route: IVPB; Infused Over: 1 hrs; rr5 Site: right forearm; 06:49 Follow up: Response: No adverse reaction; IV Status: Completed infusion 06:49 Drug: NS 0.9% 1000 ml Route: IV; Rate: 1 bolus; Site: right antecubital; 08:00 Follow up: IV Status: Completed infusion; IV Intake: 1000ml ch 07:30 Drug: Magnesium Sulfate 2 grams Route: IVPB; Infused Over: 2 hrs; Site: right forearm; 08:00 Follow up: IV Status: Infusion continued upon admission ch 07:30 Drug: Aspirin 162 mg Route: PO; 08:00 Follow up: Response: No adverse reaction ch 07:30 Drug: Lovenox 40 mg Route: Sub-Q; Site: right lower abdomen; ch 08:00 Follow up: Response: No adverse reaction ch 07:30 Drug: Xopenex 1.25 mg Route: Inhalation; ch 08:00 Follow up: Response: No adverse reaction ch 07:51 Drug: morphine 2 mg Route: IVP; Site: right forearm; 08:10 Follow up: Response: No adverse reaction; Marked relief of symptoms ch Disposition: 03/21/19 05:53 Hospitalization ordered by Lorena Calixto for Inpatient Admission. Preliminary diagnosis are Fever, unspecified, Acute pharyngitis, Dyspnea, Weakness, Hypomagnesemia. - Bed requested for Telemetry/MedSurg (Inpatient). - Status is Inpatient Admission. hb - Condition is Fair. - Problem is new. - Symptoms have improved. UTI on Admission? No Signatures: Dispatcher [employer] EDMS Hannah Alfaro Christina, Steven Whitfield RN, ch, MD MD cha Baxter, Heather, RN RN Leticia, Mar Reinaldo oGod RN RN ja1 Tejinder Vargas RN RN rr5 Corrections: (The following items were deleted from the chart) 06:27 05:53 Hospitalization Ordered by A Marily PARIKH for Inpatient Admission. Preliminary gorge diagnosis is Fever, unspecified; Acute pharyngitis; Dyspnea; Weakness. Bed requested for Telemetry/MedSurg (Inpatient). Status is Inpatient Admission. Condition is Fair. Problem is new. Symptoms have improved. UTI on Admission? No. armando 06:45 06:27 03/21/2019 05:53 Hospitalization Ordered by A Marily APRIKH for Inpatient Admission. armando Preliminary diagnosis is Fever, unspecified; Acute pharyngitis; Dyspnea; Weakness. Bed requested for [facility] ER HOLD. Status is Inpatient Admission. Condition is Fair. Problem is new. Symptoms have improved. UTI on Admission? No. ja1 13:11 06:45 03/21/2019 05:53 Hospitalization Ordered by A Marily PARIKH for Inpatient Admission. bd Preliminary diagnosis is Fever, unspecified; Acute pharyngitis; Dyspnea; Weakness; Hypomagnesemia. Bed requested for [facility] ER HOLD. Status is Inpatient Admission. Condition is Fair. Problem is new. Symptoms have improved. UTI on Admission? No. armando 15:51 13:11 03/21/2019 05:53 Hospitalization Ordered by A Marily PARIKH for Inpatient Admission. hb Preliminary diagnosis is Fever, unspecified; Acute pharyngitis; Dyspnea; Weakness; Hypomagnesemia. Bed requested for Telemetry/MedSurg (Inpatient). Status is Inpatient Admission. Condition is Fair. Problem is new. Symptoms have improved. UTI on Admission? No. bd
[2019-03-21 06:07] LABS: Absolute Lymphocytes (CBC) 1.2 K/uL (0.7-4.9); Basophils % 0.4 % (0-1.3); Hematocrit 37.4 % (36.0-45.0); Lymphocytes % 13.5 % (15.3-44.8); MPV 7.2 fL (7.6-11.3); Protime INR 1.08; RBC Red Blood Cell Count 4.28 M/uL (3.86-4.86)
[2019-03-21 06:33] LABS: Albumin 4.1 g/dL (3.4-5.0); Bilirubin Direct 0.2 mg/dL (0-0.2); Bilirubin Total 0.4 mg/dL (0.2-1.0); Potassium 4.2 mmol/L (3.5-5.1); Protein, Total 7.5 g/dL (6.4-8.2); Troponin (Emerg Dept Use Only) 0.05 ng/mL (0.0-0.045)
[2019-03-21 06:35] LABS: Magnesium 1.3 mg/dL (1.8-2.4)
[2019-03-21] MEDS ORDERED: MORPHINE 2 MG/ML SYR IV PRN ×2 (07:19→18:45)
[2019-03-21] MEDS ORDERED: ONDANSETRON 4 MG/2 ML VIAL IV PRN (07:19)
[2019-03-21] MEDS ORDERED: NA CHLORIDE 0.9% 1,000 ML IV SCH (07:19)
[2019-03-21] MEDS ORDERED: ALBUTEROL 2.5 MG/3 ML NEB SOL NEB PRN ×2 (07:19→18:43)
[2019-03-21] MEDS ORDERED: ACETAMINOPHEN 325 MG TABLET PO PRN ×2 (07:19→18:42)
[2019-03-21] MEDS ORDERED: ASPIRIN 81 MG CHEWABLE TABLET ONE (07:38)
[2019-03-21] MEDS ORDERED: ENOXAPARIN 40 MG/0.4 ML SQ ONE (07:39)
[2019-03-21] MEDS ORDERED: Magnesium Sulfate 2gm IVPB 2 G/50 ML BAG IV ONE (07:39)
[2019-03-21 07:56] LABS: Urine Blood 2+ (NEG); Urine Glucose NEGATIVE (NEG); Urine Protein 2+ (NEG); Urine Specific Gravity 1.025 (1.005-1.030)
[2019-03-21 08:13] VITALS: BMI 30.4
--- NOTE | 2019-03-21 08:26 | RAD REPORT ---
EXAM DESCRIPTION: RAD - Chest Single View - 03/21/2019 7:25 am CLINICAL HISTORY: Sore throat, cough, chest congestion COMPARISON: November 2016 TECHNIQUE: AP portable chest image was obtained 0457 hour . FINDINGS: No focal mass or consolidation. No failure or volume overload. Interstitial pattern matche s comparison. Heart and vasculature are normal. No measurable pleural effusion and no pneumothorax. N o acute bony abnormality seen. No acute aortic findings suspected. IMPRESSION: No acute cardiopulmonary process. No significant interval change.
[2019-03-21] MEDS ORDERED: NA CHLORIDE 0.9% 1,000 ML ONE (08:32)
[2019-03-21] MEDS ORDERED: METHYLPREDNISOLONE 40 MG INJ IV SCH (09:00)
[2019-03-21] MEDS ORDERED: FAMOTIDINE 20 MG/2 ML VIAL IV SCH (09:00)
[2019-03-21] MEDS ORDERED: FAMOTIDINE 20 MG/2 ML VIAL IV ONE (11:05)
[2019-03-21] MEDS ORDERED: METHYLPREDNISOLONE 40 MG INJ ONE (11:05)
[2019-03-21] MEDS: IPRATROPIUM BROM 0.5MG/2.5ML NEB PRN ×2 (11:41→19:50)
[2019-03-21] MEDS ORDERED: ALBUTEROL 2.5 MG/3 ML NEB SOL ONE (11:42)
--- NOTE | 2019-03-21 13:47 | EKG ---
Test Date: 2019-03-21 Test Time: 05:20:48 Swe[employer] Band Sewer: ANDRES MEASUREMENT RESULTS: Intervals: Rate: 95 MA: 142 QRSD: 86 QT: 328 QTc: 412 [place]: P: 64 MA: 142 QRS: 31 T: 70 INTERPRETIVE STATEMENTS: Normal sinus rhythm Normal ECG Compared to ECG 12/23/2016 17:26:43 No significant changes Electronically Signed On 03-21-19 13:46:19 [employer] by [place]
[2019-03-21] MEDS ORDERED: ENOXAPARIN 40 MG/0.4 ML SQ SCH (17:00)
[2019-03-21] MEDS: NA CHLORIDE 0.9% 1,000 ML IV SCH (17:06)
[2019-03-21] MEDS: CEFTRIAXONE/SWI 1gm 1 GM/10 ML SYR IV SCH (17:06)
[2019-03-21] MEDS: METHYLPREDNISOLONE 40 MG INJ IV SCH (17:07)
[2019-03-21] MEDS ORDERED: CEFTRIAXONE/SWI 1gm 1 GM/10 ML SYR IV SCH (18:00)
[2019-03-21] MEDS: FAMOTIDINE 20 MG/2 ML VIAL IV SCH (20:58)
[2019-03-21] MEDS: ACETAMINOPHEN 325 MG TABLET PO PRN (22:30)
--- NOTE | 2019-03-21 22:56 | HP ---
Date of Admission: 03/21/2019 Chief Complaint: Fever, sore throat, cough, congestion. History Of Present Illness: This is an 84-year-old very pleasant female patient who lives at [facility] came into emergency room with 2-3 days history of sore throat, cough, congestion, fever, and feeling weak, loss of appetite, and just not feeling good. The patient was ev aluated in the emergency room, she was admitted to the hospital. When I saw her, she was still in [facility] emergency room this morning. Denies any shortness of breath. No vomiting. No diarrhea. Allergies: TO SULFA. Medications: 1.Amlodipine/benazepril 5/40 mg 1 capsule p.o. daily. 2.Aspirin 81 mg p.o. daily. 3.Bupropion 150 mg p.o. daily. 4.Carvedilol 25 mg half a tablet in the morning, 1 tablet at bedtime. 5.Vitamin D3 5000 unit p.o. daily. 6.Desvenlafaxine 100 mg p.o. daily. 7.Furosemide 20 mg p.o. daily. 8.Gabapentin 100 mg, the patient takes 2 capsules 2 times a day. 9.Levothyroxine 120 mcg p.o. daily. 10.Omeprazole 40 mg p.o. daily 30 minutes before breakfast. 11.Rosuvastatin 10 mg daily. 12.Spironolactone 25 mg p.o. daily. Past Medical History: Significant for, 1.Peripheral neuropathy. 2.Hypothyroidism. 3.Impaired fasting glucose. 4.Hypertension. 5.Hyperlipidemia. 6.Gastroesophageal reflux disease. 7.Ventral hernia. 8.Osteoarthritis on multiple sites. 9.Depression. Past Surgical History: Cataract surgery, tonsillectomy, IVC filter placement, cholecystectomy, appen dectomy, partial resection of colon due to bowel obstruction, hysterectomy, bladder suspension, back surgery, cervical spine surgery, knee surgery in terms of bilateral knee arthroplasty. Family History: Father had arthritis, [place]. Mother, coronary artery disease, diabetes, hypertension. Brother had kidney cancer, coronary artery disease, and hypertension. Sister had stroke and diabete s. Son had hepatitis C. Social History: Negative for smoking. Negative for alcohol use. Review of Systems: Constitutional: As mentioned above. Respiratory: As mentioned above. All other systems reviewed and negative. Physical Examination: Vital Signs: Temperature 100.8, pulse 88, respiratory rate 26, blood pressure 139/64, oxygen saturat ion 98%. Height 5 feet, weight 156 pounds. General: Awake, alert, oriented, not in distress. HEENT: Head atraumatic, normocephalic. Conjunctivae nonerythematous. Sclerae white. Mouth, no thr ush or edema noted. Ears/Nose, no mass, lesion, discharge noted. Throat: Has erythema of posterior pharyngeal wall. Neck: Supple. No JVD, lymph nodes, bruit, thyromegaly noted. Lungs: Presence of rales in both lower half lung patricia, especially more so in the left lower lung f ield compared to the right side. Heart: Normal heart sounds, no murmur or gallop. Abdomen: Soft, bowel sounds normal. No guarding, rigidity, tenderness, mass, hepatosplenomegaly, dis tention, or bruit noted. Extremities: No leg edema. No calf tenderness. Skin: No rash, ulcer, cellulitis. Lymphatics: No lymph node enlargement in neck, supraclavicular, infraclavicular region. Neuro: No focal neurological deficit. Chest: Unremarkable. External Genitalia: Deferred. Rectal: Deferred. Laboratory Data: Urinalysis shows 2+ blood and 2+ protein, otherwise negative. White count 9, hemog lobin 12.3, platelets 207, 76% neutrophils. Sodium 141, potassium 4.2, chloride 106, bicarb 26, BUN 16, creatinine 0.90, glucose 126, magnesium 1.3. Liver function tests unremarkable. Troponin 0.05. Impression: 1.Rule out pneumonia. 2.Hypomagnesemia. 3.Hypertension. 4.Hyperlipidemia. 5.Osteoarthritis, multiple sites. 6.Hypothyroidism. 7.Impaired fasting glucose. 8.Peripheral neuropathy. 9.Gastroesophageal reflux disease. 10.Depression. Plan: We will admit the patient to hospital for further evaluation and management of this problem. Patient is appropriate for inpatient and is expected to spend 2 midnights in hospital. Chest x-ray w as not reported as any evidence of any pneumonia, but clinically, I am definitely concerned about pne umonia with her presentation and clinical findings. We will treat her with IV antibiotics ceftriaxon e and azithromycin. Cultures were done. We will follow up on results. We will repeat chest x-ray a nd blood work tomorrow. DVT prophylaxis with Lovenox will be given per order. Home medications will be continued and I will see her tomorrow for followup. We will have Physical Therapy help ambulate the patient and details of plan of treatment discussed with the patient. ELLIOTT/ELODIA Voice ID: [id number]
[2019-03-22] MEDS: METHYLPREDNISOLONE 40 MG INJ IV SCH ×3 (01:10→17:04)
[2019-03-22] MEDS: NA CHLORIDE 0.9% 1,000 ML IV SCH ×2 (02:58→17:01)
[2019-03-22] MEDS: BENZONATATE 100 MG CAP PO PRN (03:16)
[2019-03-22] MEDS ORDERED: IPRATROPIUM BROM 0.5MG/2.5ML ONE (03:18)
[2019-03-22] MEDS: CEFTRIAXONE/SWI 1gm 1 GM/10 ML SYR IV SCH ×2 (05:26→17:04)
[2019-03-22] MEDS ORDERED: AZITHROMYCIN 500 MG INJ IVPB ONE (05:35)
[2019-03-22] MEDS ORDERED: NA CHLORIDE 0.9% 250 ML ONE (05:35)
[2019-03-22] MEDS: AZITHROMYCIN IV 500 MG in NA CHLORIDE 0.9% 250 ML IVPB SCH (05:47)
[2019-03-22 06:32] LABS: Absolute Lymphocytes (CBC) 0.7 K/uL (0.7-4.9); Basophils % 0.1 % (0-1.3); Hematocrit 32.4 % (36.0-45.0); Lymphocytes % 7.1 % (15.3-44.8); MPV 7.7 fL (7.6-11.3); RBC Red Blood Cell Count 3.69 M/uL (3.86-4.86)
[2019-03-22 06:41] LABS: Potassium 3.7 mmol/L (3.5-5.1)
--- NOTE | 2019-03-22 07:42 | RAD REPORT ---
EXAM DESCRIPTION: RAD - Chest Single View - 03/22/2019 6:42 am CLINICAL HISTORY: Chest pain COMPARISON: March 21 TECHNIQUE: AP portable chest image was obtained 0639 hours . FINDINGS: Lung volumes are low. Hazy left base opacification is probably atelectasis rather than inf iltrate. Correlation is needed with clinical findings. No failure or volume overload suspected. Heart and vasculature are normal. No measurable pleural effusion and no pneumothorax. No acute bony abnormality seen. No acute aortic findings suspected. IMPRESSION: Left base hazy opacification is probably atelectasis rather than infiltrate. This can be monitored on follow-up imaging.
[2019-03-22] MEDS: FAMOTIDINE 20 MG/2 ML VIAL IV SCH (08:11)
[2019-03-22] MEDS: ENOXAPARIN 40 MG/0.4 ML SQ SCH (08:12)
[2019-03-22 09:03] LABS: Blood Morphology Comment NOT SEEN (NOT SEEN); Platelet Estimate ADEQ
[2019-03-22] MEDS: ONDANSETRON 4 MG/2 ML VIAL IV PRN ×2 (10:46→21:01)
[2019-03-22] MEDS ORDERED: MAGNESIUM SULFATE 1 gm IVPB 1 GM/100 ML BAG IV ONE (11:30)
[2019-03-22] MEDS ORDERED: POTASSIUM CL SA 10 MEQ TAB PO ONE (13:00)
--- NOTE | 2019-03-22 14:17 | PN ---
Date of Progress Note: 03/22/2019 Subjective: Patient was seen for followup. Her daughter was with her at bedside. She feels little better today than yesterday and reports that she is still having some cough and chest congestion and reported coughing up some clear to yellow mucus. No nausea, no vomiting. Did not get much sleep las t night and having a little bit of headache. Objective: Vital Signs: Reviewed HEENT: Unremarkable. Lungs: Bilateral good equal air entry. Presence of some rales noted in lower lung field, mostly in the basal region on the right and left side. Heart: Sounds normal. Abdomen: Soft. Bowel sounds normal. No guarding, rigidity, tenderness, or distention. Extremities: No leg edema. Laboratory Data: White count 10.5, hemoglobin 10.7, platelets 155. Differential count shows 10 band s. Sodium 142, potassium 3.7, chloride 110, bicarb 26, BUN 15, creatinine 0.78, glucose 175. Chest x-ray shows increased haziness in the left lung base. Impression: 1.Pneumonia. 2.Hypomagnesemia. 3.Hypertension. Plan: We will continue current antibiotic and order some Tylenol for her headache. Blood culture re sults pending. We will see her tomorrow for followup, possible discharge to go home tomorrow dependi ng on her condition. Details were discussed with the patient and her daughter. Physical Therapy consult is in place and therapist to help ambulate the patient. ELLIOTT/MODL Voice ID: [id number] Report ID: [id number]
[2019-03-22] MEDS: ALBUTEROL 2.5 MG/3 ML NEB SOL NEB PRN (14:35)
[2019-03-22] MEDS: IPRATROPIUM BROM 0.5MG/2.5ML NEB PRN (14:35)
[2019-03-22] MEDS: carvediloL 25 MG TAB PO SCH (17:04)
[2019-03-22] MEDS: ROSUVASTATIN 10 MG TAB PO SCH (21:01)
[2019-03-22] MEDS: BUPROPION HCL XL 150 MG TAB PO SCH (21:01)
[2019-03-22] MEDS: ACETAMINOPHEN 325 MG TABLET PO PRN (21:01)
[2019-03-22] MEDS: GABAPENTIN 100 MG CAP PO SCH (21:01)
[2019-03-23] MEDS: METHYLPREDNISOLONE 40 MG INJ IV SCH ×3 (01:01→16:58)
[2019-03-23] MEDS: NA CHLORIDE 0.9% 1,000 ML IV SCH ×2 (01:02→09:00)
[2019-03-23] MEDS: AZITHROMYCIN IV 500 MG in NA CHLORIDE 0.9% 250 ML IVPB SCH (04:41)
[2019-03-23] MEDS: CEFTRIAXONE/SWI 1gm 1 GM/10 ML SYR IV SCH ×2 (05:01→17:01)
[2019-03-23] MEDS: ACETAMINOPHEN 325 MG TABLET PO PRN ×2 (05:02→20:47)
[2019-03-23] MEDS: carvediloL 25 MG TAB PO SCH ×2 (05:03→17:04)
[2019-03-23] MEDS: PANTOPRAZOLE 40MG TABLET PO SCH (05:09)
[2019-03-23] MEDS: LEVOTHYROXINE SOD 0.125 MG TAB PO SCH (05:15)
[2019-03-23 06:07] LABS: Absolute Lymphocytes (CBC) 0.7 K/uL (0.7-4.9); Basophils % 0.1 % (0-1.3); Hematocrit 31.8 % (36.0-45.0); Lymphocytes % 7.2 % (15.3-44.8); MPV 8.2 fL (7.6-11.3); RBC Red Blood Cell Count 3.65 M/uL (3.86-4.86)
[2019-03-23 06:24] LABS: Potassium 4.2 mmol/L (3.5-5.1)
[2019-03-23] MEDS ORDERED: HOME MED 1 EA UNK (Omeprazole [Prilosec] 40 MG) PO SCH (07:30)
[2019-03-23] MEDS: IPRATROPIUM BROM 0.5MG/2.5ML NEB PRN ×2 (07:30→13:05)
[2019-03-23] MEDS: ALBUTEROL 2.5 MG/3 ML NEB SOL NEB PRN ×2 (07:30→13:05)
[2019-03-23] MEDS: ASPIRIN EC 81 MG TAB PO SCH (09:37)
[2019-03-23] MEDS: SPIRONOLACTONE 25 MG TABLET PO SCH (09:38)
[2019-03-23] MEDS: ENOXAPARIN 40 MG/0.4 ML SQ SCH (09:38)
[2019-03-23] MEDS: GABAPENTIN 100 MG CAP PO SCH ×2 (09:38→20:47)
[2019-03-23] MEDS: AMLODIPINE BENAZEPRIL PO SCH (09:40)
--- NOTE | 2019-03-23 13:25 | PN ---
Date of Progress Note: 03/23/2019 Subjective: Patient was seen this morning for followup. She was lying in bed, not in any distress. Reported that she did not feel any good. Yesterday, she did not do any physical therapy. When rené varghese came by, she told therapist that she was too weak to do anything and she did not participate wi physical therapy. This morning when I saw her, her daughter was with her and patient tells me adelaida t she does not feel like she can do any therapy because she is just too weak and I explained it to he r that we will need to go ahead and start thinking about getting her to fdc facility if s he is not able to safely ambulate and she agrees to go to fdc facility as she does not fe el like she can return back to her previous level of functioning right away and she lives independent ly at [facility]. Objective: Vital Signs: Reviewed. HEENT: Unremarkable. Lungs: Clear to auscultation. No wheezing. No crackles. Heart: Sounds normal. Abdomen: Soft. Bowel sounds normal. No guarding, rigidity, tenderness, or distention. Extremities: No leg edema. Laboratory Data: White count 9.6, hemoglobin 10.6, platelets 167. Sodium 142, potassium 4.2, chlori de 111, bicarb 26, BUN 20, creatinine 0.79, glucose 149. Impression: 1.Pneumonia. 2.Anemia. 3.Generalized weakness. 4.Debility. Plan: We will continue current medications, oxygen nebulizer treatment, IV antibiotics, and tomorrow we will request social service consult to help make arrangements for fdc facility placement for her. Discontinue IV flu ids. ELLIOTT/MODL Voice ID: [id number] Report ID: [id number]
[2019-03-23] MEDS: BUPROPION HCL XL 150 MG TAB PO SCH (20:47)
[2019-03-23] MEDS: ROSUVASTATIN 10 MG TAB PO SCH (20:48)
[2019-03-23] MEDS: BENZONATATE 100 MG CAP PO PRN (21:58)
[2019-03-24] MEDS: METHYLPREDNISOLONE 40 MG INJ IV SCH (00:53)
[2019-03-24] MEDS: BENZONATATE 100 MG CAP PO PRN (05:07)
[2019-03-24] MEDS: AZITHROMYCIN IV 500 MG in NA CHLORIDE 0.9% 250 ML IVPB SCH (05:07)
[2019-03-24] MEDS: LEVOTHYROXINE SOD 0.125 MG TAB PO SCH (05:07)
[2019-03-24] MEDS: PANTOPRAZOLE 40MG TABLET PO SCH (05:08)
[2019-03-24] MEDS: carvediloL 25 MG TAB PO SCH ×2 (05:08→17:05)
[2019-03-24] MEDS: CEFTRIAXONE/SWI 1gm 1 GM/10 ML SYR IV SCH ×2 (05:10→17:02)
[2019-03-24] MEDS: IPRATROPIUM BROM 0.5MG/2.5ML NEB PRN ×3 (05:35→19:00)
[2019-03-24] MEDS: ALBUTEROL 2.5 MG/3 ML NEB SOL NEB PRN ×3 (05:35→19:00)
[2019-03-24] MEDS: SPIRONOLACTONE 25 MG TABLET PO SCH (08:51)
[2019-03-24] MEDS: ENOXAPARIN 40 MG/0.4 ML SQ SCH (08:51)
[2019-03-24] MEDS: GABAPENTIN 100 MG CAP PO SCH ×2 (08:51→21:37)
[2019-03-24] MEDS: ASPIRIN EC 81 MG TAB PO SCH (08:51)
[2019-03-24] MEDS: cloNIDine HCL 0.1 MG TAB PO PRN ×2 (08:52→12:53)
[2019-03-24] MEDS: AMLODIPINE BENAZEPRIL PO SCH (08:52)
[2019-03-24] MEDS: BUPROPION HCL XL 150 MG TAB PO SCH (21:38)
[2019-03-24] MEDS: ROSUVASTATIN 10 MG TAB PO SCH (21:38)
--- NOTE | 2019-03-25 02:14 | PN ---
Date of Progress Note: 03/24/2019 Subjective: The patient was seen this morning for followup, lying in bed, not in distress. No new c omplaints or problems reported by her. Objective: Vital Signs: Reviewed. HEENT: Unremarkable. Lungs: Clear to auscultation. Heart: Heart sounds normal. Abdomen: Soft, bowel sounds normal. No guarding, rigidity, tenderness, or distention. Extremities: No leg edema. Impression: 1.Pneumonia. 2.Hypertension. 3.Generalized weakness. 4.Debility. Plan: The patient's blood pressure this morning was 174/82. We will continue current medications, a ntibiotics, physical therapy, social service to help make arrangements for correction facility p lacement and clonidine was ordered for p.r.n. use for high blood pressure. ELLIOTT/MODL Voice ID: [id number] Report ID: [id number]
[2019-03-25] MEDS: cloNIDine HCL 0.1 MG TAB PO PRN (02:53)
[2019-03-25] MEDS: BENZONATATE 100 MG CAP PO PRN (02:53)
[2019-03-25] MEDS: AZITHROMYCIN IV 500 MG in NA CHLORIDE 0.9% 250 ML IVPB SCH (05:59)
[2019-03-25] MEDS: CEFTRIAXONE/SWI 1gm 1 GM/10 ML SYR IV SCH (06:00)
[2019-03-25] MEDS: carvediloL 25 MG TAB PO SCH (06:00)
[2019-03-25] MEDS: ACETAMINOPHEN 325 MG TABLET PO PRN (06:03)
[2019-03-25] MEDS: LEVOTHYROXINE SOD 0.125 MG TAB PO SCH (06:07)
[2019-03-25] MEDS: PANTOPRAZOLE 40MG TABLET PO SCH (06:07)
[2019-03-25] MEDS: ENOXAPARIN 40 MG/0.4 ML SQ SCH (08:43)
[2019-03-25] MEDS: AMLODIPINE BENAZEPRIL PO SCH (08:46)
[2019-03-25] MEDS: ASPIRIN EC 81 MG TAB PO SCH (08:46)
[2019-03-25] MEDS: GABAPENTIN 100 MG CAP PO SCH (08:46)
[2019-03-25] MEDS: SPIRONOLACTONE 25 MG TABLET PO SCH (08:46)
[2019-03-25] MEDS: ALBUTEROL 2.5 MG/3 ML NEB SOL NEB PRN (09:31)
[2019-03-25] MEDS: IPRATROPIUM BROM 0.5MG/2.5ML NEB PRN (09:31)
[2019-03-25 12:47] VITALS: O2SAT 95
[2019-03-25 14:02] VITALS: TEMP 98.3
[2019-03-25 14:46] VITALS: BP 159/78
[2019-03-26] MEDS ORDERED: AZITHROMYCIN 250 MG TAB PO SCH (09:00)
--- NOTE | 2019-03-26 22:58 | DS ---
Date of Discharge: 03/25/2019 Discharge Medications And Instructions: 1.Continue all prior home medication. 2.Give albuterol nebulizer treatment and cefuroxime 250 mg twice a day for 1 week. 3.Consult Physical Therapy and Occupational Therapy at [facility]. 4.Fall precautions. Physical Examination: HEENT: Unremarkable. Lungs: Clear to auscultation. Heart: Heart sounds normal. Abdomen: Soft, bowel sounds normal. No guarding, rigidity, tenderness, or distention. Extremities: No leg edema. Laboratory Data: Upon admission, white count 9, hemoglobin 12.3, platelets 207 on 03/21/2019. On , white count 9.6, hemoglobin 10.6, platelets 167. Last chemistry on 03/23, sodium 142, pota ssium 4.2, chloride 111, bicarb 26, BUN 20, creatinine 0.79, glucose 149, magnesium 2.2. Hospital Course: An 84-year-old pleasant female patient, admitted to the hospital with fever, sore t hroat, cough, and chest congestion. Patient was evaluated in the emergency room and admitted to the hospital. Patient was treated for pneumonia. Even though chest x-ray did not definitely show pneumo jumana clinically, I was concerned about pneumonia and she was treated for it. Overall, her condition h as improved. She has significant generalized weakness and debility. Prior to this admission, she wa s living independently at [facility]. [facility] so alf facility placement was suggested. 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 Final Diagnoses: 1.Pneumonia. 2.Generalized weakness. 3.Debility. 4.Hypomagnesemia. 5.Hypertension. 6.Hyperlipidemia. 7.Osteoarthritis, multiple sites. 8.Hypothyroidism. 9.Impaired fasting glucose. 10.Peripheral neuropathy. 11.Depression. 12.Gastroesophageal reflux disease. ELLIOTT/MODL Voice ID: [id number] Report ID: [id number]
== END 2019-03-25 15:56 | DRG 195 ==
LOC: ER 04:02 → ERHOLD 06:02 → UNDOADMIN 06:05 → 2ND 15:22
PROVIDERS: ADMIT Internal Medicine; ATTEND Internal Medicine
DX: J18.9 Pneumonia, unspecified organism (principal); E83.42 Hypomagnesemia; I10 Essential (primary) hypertension; E78.5 Hyperlipidemia, unspecified; M15.9 Polyosteoarthritis, unspecified; E03.9 Hypothyroidism, unspecified; R73.01 Impaired fasting glucose; G62.9 Polyneuropathy, unspecified; K21.9 Gastro-esophageal reflux disease without esophagitis; F32.9 Major depressive disorder, single episode, unspecified; R54 Age-related physical debility; D64.9 Anemia, unspecified
CPT/HCPCS: 36415; 71045; 80048; 80076; 81003; 83605; 83735; 83880; 84484; 85025; 85610; 87040; 87070; 87081; 87804; 93005; 94640; 94760; 96361; 96365; 96367; 96372; 96375; 97116; 97161; 97530; 99284; J0456; J0696; J1100; J1650; J2270; J2405; J2920; J2930; J3475; J7030

== ENCOUNTER 2020-03-04 10:59 | Emergency (ER) | payer OTHER ==
--- OUTSIDE RECORDS SUMMARY | 2020-03-04 11:40 | XMS REPORT | Continuity of Care Document ---
:1935 Author Organization [facility] [place] Information [place] Care Team Providers Name Role Phone [facility] Information [place] Unavailable Un available Problems Problem Status Onset Classification Date Comments Sourc e Date Reported Dermatitis Active 04/09/2013 [facility] Medications Medication Details Route Status Patient Ordering Order Source Instructions Provider Date Lotrel CAPS (Active) Active [facility] Synthroid TABS (Active) Active [facility] Pristiq 100 MG (Active) Active [facility] Oral Tablet [facility] Extended Release 24 Hour BuPROPion HCl (Active) Active [facility] TABS [facility] Pantoprazole (Active) Active [facility] Sodium 40 MG [facility] Oral Tablet Delayed Release Furosemide 20 MG (Active) Active [facility] Tablet [facility] Klor-Con M20 20 (Active) Active [facility] MEQ Oral Tablet Physicia ns Extended Release Lomotil TABS (Active) Active [facility] Atenolol 50 MG (Active) Active [facility]t [facility] Lipitor 40 MG (Active) Active [facility] Tablet [facility] Hydrocodone-Acet (Active) Active [facility] aminophen TABS Physician s Daily Vitamin (Active) Active [facility] Vitamin D3 TABS (Active) Active [facility] Magnesium CAPS (Active) Active [facility] Lutein CAPS (Active) Active [facility] Calcium 600 MG (Active) Active [facility] Oral Tablet [facility] Centrum Silver (Active) Active [facility]S [facility] Triamcinolone (Active) Active [facility] Acetonide 0.1 % Physicia ns External Cream Cetaphil (Active) Active [facility] External Cream Physician s Allergies, Adverse Reactions, Alerts Substance Category Reaction Severity Reaction Status Date Comments S ource type Reported Sulfa Drugs drug drug Active [facility] allergy allergy [facility]icia ns Immunizations No Data Provided for This Section Results No Data Provided for This Section Pathology Reports No Data Provided for This Section Diagnostic Reports No Data Provided for This Section Consultation Notes No Data Provided for This Section Discharge Summaries No Data Provided for This Section History and Physicals No Data Provided for This Section Vital Signs No Data Provided for This Section Encounters Location Location Encounter Encounter Reason Attending ADM NM Stat us Source Details Type Number For Provider Date Date Visit AUDIT [id number] 04/02 /2013 [facility] AUDIT [id number] 04/09 /2013 [facility] EP1, [id number] 04/23 04/02 [facility] Provider: /2013 APRIL Reynoso, Status: Pen, Time: 1:10 PM Procedures No Data Provided for This Section Assessment and Plan No Data Provided for This Section Plan of Care No Data Provided for This Section Social History Social History Date Source Former Smoker (V15.82); 04/09/2013 [facility] (Active) Family History No Data Provided for This Section Advance Directives Order Name Results Value Date Source Advance Directives Advance Directives No Advance 04/09/2013 [facility] Directives available. Advance Directives Advance Directives No Advance 04/02/2013 [facility] Directives available. Functional Status No Data Provided for This Section
--- OUTSIDE RECORDS SUMMARY | 2020-03-04 11:40 | XMS REPORT | Clinical Summary ---
:1935 Author Organization [facility] Address [address] [place] [address] Care Team Providers Name Role Phone Unavailable Primary Care Provider Unavailable Allergies Active Allergy Reactions Severity Noted Date Comments Sulfa (Sulfonamide Antibiotics) Hives 0 Medications Medication Sig Dispensed Refills Start End Date Status Date carvediloL (COREG) Take 25 mg by 0 Active 25 MG tablet mouth 2 (two) times a day with meals. BUPROPION HCL ORAL Take 150 0 A ctive capsules by mouth. levothyroxine Take 125 mcg by 0 Active (SYNTHROID) 125 mouth daily. mcg tablet spironolactone Take 25 mg by 0 A ctive (ALDACTONE) 25 MG mouth daily. tablet rosuvastatin Take 10 mg by 0 Act yasmany (CRESTOR) 10 mg mouth daily. tablet amlodipine-atorvas Take 1 tablet 0 Active tatin (CADUET) by mouth daily. 5-40 mg per tablet furosemide (LASIX) Take 20 mg by 0 Active 20 mg tablet mouth 2 (two) times a day. gabapentin Take 100 mg by 0 Acti ve (NEURONTIN) 100 mg mouth 3 (three) capsule times a day. albuterol (PROAIR Inhale 2 puffs 0 Active HFA) 90 every 6 (six) mcg/actuation hours as needed inhaler for wheezing. aspirin (ECOTRIN) Take 81 mg by 0 Active 81 MG enteric mouth daily. coated tablet pantoprazole Take 40 mg by 0 Act yasmany (PROTONIX) 40 MG mouth. EC tablet colesevelam Take 3 tablets 180 tablet 09/03/19 Ac tive (WELCHOL) 625 mg (1,875 mg 0 21 tabletIndications: total) by mouth Post-cholecystecto 2 (two) times a my syndrome day with meals. sucralfate Take 1 tablet 60 tablet 3 09/11/19 Expir ed (Carafate) 1 gram (1 g total) by 0 20 tabletIndications: mouth 2 (two) Chronic times a day for superficial 30 days. Take gastritis without an hour apart bleeding from other medications riFAXimin Take 1 tablet 42 tablet 0 09/05/19 Discon tinued (XIFAXAN) 550 mg (550 mg total) 0 20 (Reorder) tabletIndications: by mouth 3 Irritable bowel (three) times a syndrome with day for 14 diarrhea days. riFAXimin Take 1 tablet 42 tablet 0 09/19/19 d (XIFAXAN) 550 mg (550 mg total) 0 20 tabletIndications: by mouth 3 Irritable bowel (three) times a syndrome with day for 14 diarrhea days. Active Problems No known active problems Encounters Date Type Specialty Care Team Description 09/05/2019 Orders Only Gastroenterology Sergo Nieves Irritab le bowel MA syndrome with d iarrhea (Primary Dx) 09/03/2019 Office Visit Gastroenterology Melinda Kang Post-c holecystectomy syndrome (Primary Dx); MD Angle Irritable bowel syndrome with diarrhea; Incontinence of feces with fecal urgency; Diarrhea, unspe cified type 09/03/2019 Travel 08/26/2019 Travel 08/12/2019 Telephone Consult Gastroenterology Melinda Kang hronic superficial MD Angle gastritis witho ut bleeding (Prima ry Dx) 08/08/2019 Travel after 03/04/2019 Surgical History Surgery Date Site/Laterality Comments COLONOSCOPY 03/26/2007 - 03/25/2008 Medical History Medical History Date Comments Hypertension Family History Medical History Relation Name Comments Colon cancer Neg Hx Colon polyps Neg Hx Social History Tobacco Use Types Packs/Day Years Used Date Never Smoker Smokeless Tobacco: Never Used Sex Assigned at Date Recorded Not on file Last Filed Vital Signs Vital Sign Reading Time Taken Comments Blood Pressure 121/61 09/03/2019 1:50 PM CDT Pulse 83 09/03/2019 1:50 PM CDT Temperature 36.7 C (98.1 F) 09/03/2019 1:50 PM CDT Respiratory Rate 12 09/03/2019 1:50 PM CDT Oxygen Saturation - - Inhaled Oxygen Concentration - - Weight 69.4 kg (153 lb) 09/03/2019 1:50 PM CDT Height 152.4 cm (5') 09/03/2019 1:50 PM CDT Body Mass Index 29.88 09/03/2019 1:50 PM CDT Plan of Treatment Health Maintenance Due Date Last Done Comments SHINGLES VACCINES (#1) 1983 65+ PNEUMOCOCCAL VACCINE (1 of 1 - PPSV23) 1998 INFLUENZA VACCINE 10/25/2019 Results Not on fileafter 03/04/2019 Insurance Payer Benefit Plan / Subscriber ID Effective Dates Phone Addre ss Type Group MEDICARE MEDICARE PART A [id number] 1998-Present BRENNAN KATZ Medicare AND B FOR LIFE [id number] 2019-Present [facility] SUPPLEMENT Advance Directives For more information, please contact: [phone] Type Date Recorded 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
--- OUTSIDE RECORDS SUMMARY | 2020-03-04 11:41 | XMS REPORT | Continuity of Care Document ---
:1935 Author Organization [facility] t Address [address] [place] [address] Care Team Providers Name Role Phone Ezequiel PALMA Attending Clinician Unavailable Angle Kang MD Attending Clinician Payers Payer Name Policy Type Policy Effective Date Expiration Date Sour ce Number MEDICAREMEDICARE PART [id number] 1998 Satinder Carrillo AND 00:00:00 [employer] [id number] 1999 [place] [address] [facility] [place] FOR [id number] 2019 [place] M[place] 00:00:00 Sikhism [id number] /03/2019-PresentMilita ry Problems Condition Condition Condition Status Onset Resolution Last Treating Co mments Source Name Details Category Date Date Treatment Clinician Date Dermatitis Problem Active 2013-04-09 emoria 16:23:12 cindy Padilla Dermatitis Active 04/09/2013 [facility] Allergies, Adverse Reactions, Alerts Allergy Allergy Status Severity Reaction(s) Onset Inactive Treating Comm ents Source Name Type Date Date Clinician Sulfa Propensi Active Hives [place] (Sulfona ty to 5-19 Methodi mide adverse 00:00: st Antibiot reaction 00 ics) s to drug Sulfa Sulfa Active [facility] l Randy Family History Family Member Diagnosis Comments Start Date Stop Date Source Family member Colon cancer [facility] ethodist Family member Colon polyps [facility] ethodi Social History Social Habit Start Date Stop Date Quantity Comments Source Sex Assigned At [facility] ethodist Tobacco use and 2019-09-03 2019-09-[address] [facility] ethodist exposure 00:00:00 00:00:00 Social History 2013-04-09 2013-04-09 [facility] Yvon marsh 16:23:12 16:23:12 Smoking Status Start Date Stop Date Source Never smoker Negro Rodriguezis t Medications Ordered Filled Start Stop Current Ordering Indication Dosage Frequency Signature Comments Components Source Medication Medication Date Date Medication? Clinician (SIG) Name Name riFAXimin 2020-0 2020- No Irritable 550mg [id number] Take 1 Tom (XIFAXAN) 6-12 06-26 bowel [id number] tablet Methodi 550 mg 00:00: 23:59 syndrome 3D ([address] tablet 00 :00 with total) by diarrhea mouth 3 (three) times a day for 14 days. amlodipine- 2020-0 Yes 1{tbl} QD Take 1 Ho codi atorvastati 6-10 tablet by Met chang n (CADUET) 13:55: mouth st 5-40 mg per 37 daily. tablet carvediloL 2020-0 Yes 25mg Q.5D Take 25 mg [place] (COREG) 25 6-10 by mouth 2 Met hodi MG tablet 13:54: (two) st 59 times a day with meals. BUPROPION 2020-0 Yes 150{cap Take 150 [place] HCL ORAL 6-10 duyen} capsules Method i 13:54: by mouth. st 59 levothyroxi 2020-0 Yes 125ug QD Take 125 [place] ne 6-10 mcg by Methodi (SYNTHROID) 13:54: mouth st 125 mcg 59 daily. tablet spironolact 2020-0 Yes 25mg QD Take 25 mg Tom one 6-10 by mouth Methodi (ALDACTONE) 13:54: daily. st 25 MG 59 tablet rosuvastati 2020-0 Yes 10mg QD Take 10 mg Tom n (CRESTOR) 6-10 by mouth Meth bucky 10 mg 13:54: daily. st tablet 59 furosemide 2020-0 Yes 20mg Q.5D Take 20 mg [place] (LASIX) 20 6-10 by mouth 2 Met hodi mg tablet 13:54: (two) st 59 times a day. gabapentin 2020-0 Yes 100mg Q.[id number] Take 100 Tom (NEURONTIN) 6-10 [id number] mg by M ethodi 100 mg 13:54: 3D mouth 3 st capsule 59 (three) times a day. albuterol 2019-0 Yes 2{puff} Q6H Inhale 2 [place] (PROAIR 6-10 puffs Methodi HFA) 90 13:54: every 6 st mcg/actuati 59 (six) on inhaler hours as needed for wheezing. aspirin 2019-0 Yes 81mg QD Take 81 mg [place] (ECOTRIN) 610 by mouth Method i 81 MG 13:54: daily. st enteric 59 coated tablet pantoprazol Yes 40mg Take 40 mg Tom e 6-10 by mouth. Methodi (PROTONIX) 13:54: st 40 MG EC 59 tablet colesevelam 2020- No Post-cholec 1875mg Q.5D Take 3 Tom (WELCHOL) 09-02 ystectomy tablets M ethodi 625 mg 00:00: 23:59 syndrome (1,875 mg s t tablet 00 :00 total) by mouth 2 (two) times a day with meals. riFAXimin 2019- No Irritable 550mg Q.[id number] Take 1 Tom (XIFAXAN) 09-02 bowel [id number] tablet Methodi 550 mg 00:00: 00:00 syndrome 3D ([address] tablet 00 :00 with total) by diarrhea mouth 3 (three) times a day for 14 days. sucralfate 2020- No Chronic 1g Q.5D Take 1 H mahamed (Carafate) 08-11 0618 superficial tablet (1 Methodi 1 gram 00:00: 23:59 gastritis g total) s t tablet 00 :00 without by mouth 2 bleeding (two) times a day for 30 days. Take an hour apart from other medication s Lotrel CAPS Yes (Active) M emoria 1-15 l 16:23: [place] 12 Synthroid Yes (Active) Mem oria TABS 1-15 l 16:23: Randy 12 Pristiq 100 Yes (Active) M emoria MG Oral 1-15 l Tablet 16:23: [place] Extended 12 Release 24 Hour BuPROPion Yes (Active) Mem oria HCl TABS 1-15 l 16:23: Randy 12 Pantoprazol Yes (Active) M emoria e Sodium 40 1-15 l MG Oral 16:23: Randy Samson 12 Delayed Release Furosemide 2013-0 Yes (Active) Me moria 20 MG Oral 1-15 l Tablet 16:23: Randy Hale Klor-Con 2013-0 Yes (Active) Jamie kathy M20 20 MEQ 1-15 l Oral Tablet 16:23: Larry montanez Extended 12 Release Lomotil 2013-0 Yes (Active) Memor ia TABS 1-15 l 16:23: Randy Hale Atenolol 50 2013-0 Yes (Active) M emoria MG Oral 1-15 l Tablet 16:23: Randy Hale Lipitor 40 2013-0 Yes (Active) Me moria MG Oral 1-15 l Tablet 16:23: Randy Hale Hydrocodone 2013-0 Yes (Active) M emoria -Acetaminop 1-15 l hen TABS 16:23: Randy 12 Daily 2013-0 Yes (Active) Memoria Vitamin 1-15 l TABS 16:23: Randy Hale Vitamin D3 2013-0 Yes (Active) Me moria TABS 1-15 l 16:23: Randy Hale Magnesium 2013-0 Yes (Active) Mem oria CAPS 1-15 l 16:23: Randy Hale Lutein CAPS 2013-0 Yes (Active) M emoria 1-15 l 16:23: Randy Hale Calcium 600 2013-0 Yes (Active) M emoria MG Oral 1-15 l Tablet 16:23: Randy Hale Centrum 2013-0 Yes (Active) Memor ia Silver TABS 1-15 l 16:23: Randy Hale Triamcinolo 2013-0 Yes (Active) M emoria ne 1-15 l Acetonide 16:23: Randy 0.1 % 12 External Cream Cetaphil 2013-0 Yes (Active) Jamie kathy External 1-15 l Cream 16:23: Randy 12 Vital Signs Vital Name Observation Time Observation Value Comments Source Systolic blood 2019-09-03 13:50:00 121 mm[Hg] David n Sikhism pressure Diastolic blood 2019-09-03 13:50:00 61 mm[Hg] Lucio on Sikhism pressure Heart rate 2019-09-03 13:50:00 83 /min Tom [facility] Body temperature 2019-09-03 13:50:00 36.72 Jes [place] [facility] Respiratory rate 2019-09-03 13:50:00 12 /min Geogria dietz Sikhism Body height 2019-09-03 13:50:00 152.4 cm Negro Vee Body weight 2019-09-03 13:50:00 69.4 kg Negro Vee BMI 2019-09-03 13:50:00 29.88 kg/m2 Negro Vee Procedures This patient has no known procedures. Plan of Care Planned Activity Planned Date Details Comments Source Future Scheduled 2019-10-25 INFLUENZA VACCINE Georgiato lisseth [facility] Test 00:00:00 [code = INFLUENZA VACCINE] Future Scheduled 1998 65+ PNEUMOCOCCAL Negro [facility] Test 00:00:00 VACCINE (1 of 1 - PPSV23) [code = 65+ PNEUMOCOCCAL VACCINE (1 of 1 - PPSV23)] Future Scheduled 1983 SHINGLES VACCINES (#1) [place] [facility] Test 00:00:00 [code = SHINGLES VACCINES (#1)] Encounters Start End Encounter Admission Attending Care Care Encounter Source Date/Time Date/Time Type Type Clinicians Facility Department ID 2019-09-03 2019-09-03 Outpatient [facility] [id number] [place] 00:00:00 00:00:00 [facility] [address] 2013-04-09 2013-04-09 Outpatient HERMELINDA HERMELINDA [id number] 10:23:13 10:23:12 2013-04-02 2013-04-02 Outpatient DESHAUN MEADE [id number] 15:28:56 15:28:56 Results This patient has no known results.
--- NOTE | 2020-03-04 15:17 | RAD REPORT ---
EXAM DESCRIPTION: RAD - Chest Pa And Lat (2 Views) - 03/04/2020 3:06 pm CLINICAL HISTORY: COUGH Chest pain. COMPARISON: Chest Single View dated 04/25/2019; Chest Single View dated 03/22/2019; Chest Single View dated 03/21/2019; Chest Pa And Lat (2 Views) dated 12/23/2016 FINDINGS: The lungs are mildly emphysematous but clear. The heart is normal in size. No displaced fr actures. IMPRESSION: Mild COPD.
--- NOTE | 2020-03-04 16:23 | ER ---
Nurse's Notes [facility] Name: Josee Romero Age: 85 yrs Sex: Female : 1935 Arrival Date: 03/04/2020 Time: 11:02 Bed 7 Private MD: Lorena Calixto C Diagnosis: Bronchitis, not specified as acute or chronic Presentation: 03/04 11:48 Chief complaint: Patient states: has had a cold since [place], has a cough,diff iw breathing at night, chest congestion, no fever , has not been tested for COVID. Coronavirus screen: congestion, cough unrelated to allergies. Ebola Screen: Patient negative for fever greater than or equal to 101.5 degrees Fahrenheit, and additional compatible Ebola Virus Disease symptoms Patient denies exposure to infectious person. Patient denies travel to an Ebola-affected area in the 21 days before illness onset. No symptoms or risks identified at this time. Initial Sepsis Screen: Does the patient meet any 2 criteria? No. Patient's initial sepsis screen is negative. Does the patient have a suspected source of infection? No. Patient's initial sepsis screen is negative. Risk Assessment: Do you want to hurt yourself or someone else? Patient reports no desire to harm self or others. Onset of symptoms was February 19, 2020. 11:48 Method Of Arrival: Ambulatory iw 11:48 Acuity: ELPIDIO 3 iw Historical: - Allergies: 11:51 Sulfa (Sulfonamide Antibiotics); iw - PMHx: 11:51 Diabetes - NIDDM; mitral valve prolapse; Hypertension; Thyroid problem; neuropathy; iw spinal stenosis; - PSHx: 11:51 Cholecystectomy; Hysterectomy; Knee surgery; colon surgery; Appendectomy; cervical iw spine surgery; - Immunization history:: Adult Immunizations up to date. - Social history:: Smoking status: Patient denies any tobacco usage or history of. Screenin:30 Abuse screen: Denies threats or abuse. Nutritional screening: No deficits noted. em Tuberculosis screening: No symptoms or risk factors identified. Fall Risk None identified. Assessment: 14:30 General: Appears in no apparent distress. comfortable, Behavior is calm, cooperative, em appropriate for age, Denies fever. Pain: Complains of pain in throat. Neuro: Level of Consciousness is awake, alert, obeys commands, Oriented to person, place, time, situation, Appropriate for age. Cardiovascular: Capillary refill < 3 seconds Patient's skin is warm and dry. Chest pain is denied. Respiratory: Airway is patent Respiratory effort is even, unlabored, Respiratory pattern is regular, symmetrical, Breath sounds with wheezes bilaterally. GI: Patient currently denies nausea, vomiting. EENT: Nares are clear Oral mucosa is moist. Throat is clear. Derm: Skin is intact, is healthy with good turgor, Skin is pink, warm \T\ dry. Musculoskeletal: Capillary refill < 3 seconds, Range of motion: intact in all extremities. 16:30 Reassessment: Patient appears in no apparent distress at this time. Patient and/or em family updated on plan of care and expected duration. Pain level reassessed. Patient is alert, oriented x 3, equal unlabored respirations, skin warm/dry/pink. Vital Signs: 11:48 BP 172 / 83; Pulse 90; Resp 18 S; Temp 98.2; Pulse Ox 95% on R/A; iw ED Course: 11:02 Patient arrived in ED. rg4 11:02 Lorena Calixto MD is Private Physician. rg4 11:50 Triage completed. iw 12:41 Martin Tobar, RN is Primary Nurse. em 12:43 Jimmie Wise MD is Attending Physician. kdr 14:30 Patient has correct armband on for positive identification. Bed in low position. Call em light in reach. 15:07 Chest Pa And Lat (2 Views) XRAY In Process Unspecified. EDMS 16:22 Lorena Calixto MD is Referral Physician. kdr 16:41 No provider procedures requiring assistance completed. Patient did not have IV access em during this emergency room visit. Administered Medications: No medications were administered Outcome: 16:22 Discharge ordered by . kdr 16:50 Discharged to home ambulatory, with family. em 16:50 Condition: stable 16:50 Discharge instructions given to patient, Instructed on discharge instructions, follow up and referral plans. medication usage, Demonstrated understanding of instructions, follow-up care, medications, Prescriptions given X 3. 16:50 Patient left the ED. em Addendum: 03/06/2020 08:06 Addendum: COVID-19 Result: Negative result given to RN to notify pt. Notified pt of a a5 negative COVID 19 swab results. Pt advised that even with a negative test result they should remain in isolation until symptom free for 3 days without medication. Pt also advised to return to the ED for worsening symptoms. Signatures: Dispatcher [employer] Jimmie Mcginnis MD MD kdr Munoz, Edgar, RN RN em Williams, Irene, RN RN iw Calderon, Audri, RN RN [phone] Annalise Calvillo 4
--- NOTE | 2020-03-04 16:23 | EDPHYS ---
Physician Documentation [facility] Name: Josee Romero Age: 85 yrs Sex: Female : 1935 Arrival Date: 03/04/2020 Time: 11:02 Bed 7 Private MD: Lorena Calixto C ED Physician Jimmie Wise HPI: 03/04 15:15 This 85 yrs old Female presents to ER via Ambulatory with complaints of Sore kdr Throat, Breathing Difficulty, Cough. 15:15 The patient presents with sore throat. The patient describes throat pain as dry, kdr intermittent, scratchy. Onset: The symptoms/episode began/occurred gradually, 10 day(s) ago. Severity of symptoms: At their worst the symptoms were mild, moderate, just prior to arrival, in the emergency department the symptoms are unchanged. Associated signs and symptoms: Pertinent positives: cough, nausea, congestion and stuffiness. The patient has not experienced similar symptoms in the past. The patient has not recently seen a physician. Historical: - Allergies: 11:51 Sulfa (Sulfonamide Antibiotics); iw - PMHx: 11:51 Diabetes - NIDDM; mitral valve prolapse; Hypertension; Thyroid problem; neuropathy; iw spinal stenosis; - PSHx: 11:51 Cholecystectomy; Hysterectomy; Knee surgery; colon surgery; Appendectomy; cervical iw spine surgery; - Immunization history:: Adult Immunizations up to date. - Social history:: Smoking status: Patient denies any tobacco usage or history of. ROS: 15:15 Constitutional: Negative for fever, chills, and weight loss, Eyes: Negative for injury, kdr pain, redness, and discharge, Neck: Negative for injury, pain, and swelling, Cardiovascular: Negative for chest pain, palpitations, and edema, Abdomen/GI: Negative for abdominal pain, nausea, vomiting, diarrhea, and constipation, Back: Negative for injury and pain, : Negative for injury, bleeding, discharge, and swelling, MS/Extremity: Negative for injury and deformity, Skin: Negative for injury, rash, and discoloration, Neuro: Negative for headache, weakness, numbness, tingling, and seizure activity. Psych: Negative for depression, anxiety, suicide ideation, homicidal ideation, and hallucinations, Allergy/Immunology: Negative for hives, rash, and allergies, Endocrine: Negative for neck swelling, polydipsia, polyuria, polyphagia, and marked weight changes, Hematologic/Lymphatic: Negative for swollen nodes, abnormal bleeding, and unusual bruising. 15:15 Respiratory: Positive for cough, with no reported sputum, congested feeling, Negative for dyspnea on exertion, hemoptysis, orthopnea, pleurisy, shortness of breath, sputum production. Exam: 15:15 Constitutional: This is a well developed, well nourished patient who is awake, alert, kdr and in no acute distress. Head/Face: Normocephalic, atraumatic. Eyes: Pupils equal round and reactive to light, extra-ocular motions intact. Lids and lashes normal. Conjunctiva and sclera are non-icteric and not injected. Cornea within normal limits. Periorbital areas with no swelling, redness, or edema. Neck: Trachea midline, no thyromegaly or masses palpated, and no cervical lymphadenopathy. Supple, full range of motion without nuchal rigidity, or vertebral point tenderness. No Meningismus. Chest/axilla: Normal chest wall appearance and motion. Nontender with no deformity. No lesions are appreciated. Cardiovascular: Regular rate and rhythm with a normal S1 and S2. No gallops, murmurs, or rubs. Normal PMI, no JVD. No pulse deficits. Respiratory: Lungs have equal breath sounds bilaterally, clear to auscultation and percussion. No rales, rhonchi or wheezes noted. No increased work of breathing, no retractions or nasal flaring. Abdomen/GI: Soft, non-tender, with normal bowel sounds. No distension or tympany. No guarding or rebound. No evidence of tenderness throughout. Back: No spinal tenderness. No costovertebral tenderness. Full range of motion. Skin: Warm, dry with normal turgor. Normal color with no rashes, no lesions, and no evidence of cellulitis. MS/ Extremity: Pulses equal, no cyanosis. Neurovascular intact. Full, normal range of motion. Neuro: Awake and alert, GCS 15, oriented to person, place, time, and situation. Cranial nerves II-XII grossly intact. Motor strength 5/5 in all extremities. Sensory grossly intact. Cerebellar exam normal. Normal gait. Psych: Awake, alert, with orientation to person, place and time. Behavior, mood, and affect are within normal limits. Vital Signs: 11:48 BP 172 / 83; Pulse 90; Resp 18 S; Temp 98.2; Pulse Ox 95% on R/A; iw MDM: 15:15 Data reviewed: vital signs, nurses notes, lab test result(s). Counseling: I had a kdr detailed discussion with the patient and/or guardian regarding: the historical points, exam findings, and any diagnostic results supporting the discharge/admit diagnosis, lab results, the need for outpatient follow up. 16:22 Patient medically screened. kdr 03/04 13:57 Order name: Strep; Complete Time: 16:10 iw 03/04 13:57 Order name: COVID-19 iw 03/04 13:57 Order name: Chest Pa And Lat (2 Views) XRAY; Complete Time: 16: 03/04 15:32 Order name: Throat Culture EDMS Administered Medications: No medications were administered Disposition: 03/04/20 16:22 Discharged to Home. Impression: Bronchitis, not specified as acute or chronic. - Condition is Stable. - Discharge Instructions: Acute Bronchitis, [id number]. - Prescriptions for prednisone 10 mg Oral tablet - take 1 tablet by ORAL route 2 times per day for 3 days; 6 tablet. Tessalon Perles 100 mg Oral Capsule - take 1 capsule by ORAL route every 8 hours As needed; 20 capsule. Albuterol Sulfate 90 mcg/actuation - inhale 1-2 puff by INHALATION route every 4-6 hours; 1 Inhaler. - Medication Reconciliation Form, Thank You Letter form. - Follow up: Lorena Calixto MD; When: 2 - 3 days; Reason: If symptoms return, Further diagnostic work-up, Recheck today's complaints, Continuance of care, Re-evaluation by your physician. - Problem is new. - Symptoms have improved. Signatures: Dispatcher [employer] EDMS Jimmie Wise MD MD [facility] Martin Tobar RN RN em Damari Salgado RN RN Corrections: (The following items were deleted from the chart) 16:50 16:22 03/04/2020 16:22 Discharged to Home. Impression: Bronchitis, not specified as em acute or chronic. Condition is Stable. Forms are Medication Reconciliation Form, Thank You Letter, Antibiotic Education, Prescription Opioid Use. Follow up: Lorena Calixto; When: 2 - 3 days; Reason: If symptoms return, Further diagnostic work-up, Recheck today's complaints, Continuance of care, Re-evaluation by your physician. Problem is new. Symptoms have improved. kdr
[2020-03-09 19:29] VITALS: BP 172/83; TEMP 98.2; O2SAT 95
== END 2020-03-04 16:50 | disposition home or self-care (01) ==
LOC: ER 10:59
DX: J40 Bronchitis, not specified as acute or chronic (principal); Z20.828 Contact with and (suspected) exposure to other viral communicable diseases; I10 Essential (primary) hypertension; Z88.2 Allergy status to sulfonamides
CPT/HCPCS: 87070; 87081; 71046; 99283; U0002